=== PATIENT | female | born 1965 | race Caucasian/White ===

== ENCOUNTER 2017-07-02 05:02 | Emergency (ER) | payer OTHER ==
[2017-07-02 05:30] VITALS: BP 145/75; PULSE 88; TEMP 99.4; BMI 29.2
--- NOTE | 2017-07-02 05:46 | PDOC ---
History of Present Illness - General Chief Complaint: Cold Symptoms Stated Complaint: BURNING COUGH,SORE THROAT,PAIN Time Seen by Provider: 07/02/17 05:23 - History of Present Illness Initial Comments: 51 year old female with no significant PMH presenting with sore throat times 3 days and cough times 3 hours with chest pain. Patient states that she came in today because she was coughing which woke up her out of her sleep. The cough is productive of clear sputum and occasional specs of blood. She has had a sore throat for the past few days as well that has gradually improved with throat lozenges. She describes the chest pain as a burning sensation from her epigastrium to her upper chest that is worse during coughing and subsides after she stops coughing. The pain does not radiate to either shoulder or co-present with diaphoresis, nausea, SOB, or other symptoms. She denies fevers, chills, nausea, vomiting, diarrhea, olr other symptoms. 07/02/17 06:02 Past History - Past Medical History Allergies/Adverse Reactions: Allergies Allergy/AdvReac Type Severity Reaction Status Date / Time No Known Drug Allergies Allergy Verified 07/02/17 05:24 cefazolin AdvReac Intermediate Verified 07/02/17 05:24 Home Medications: Ambulatory Orders NK [No Known Home Medication] 07/02/17 Anemia: No Asthma: No (SEASONAL ALLERGIES) Cancer: No Cardiac Disorders: No CVA: No COPD: No CHF: No Dementia: No Diabetes: No GI Disorders: No Disorders: No HTN: No Hypercholesterolemia: No Liver Disease: No Seizures: No Thyroid Disease: No - Surgical History Abdominal Surgery: No Appendectomy: No Cardiac Surgery: No Cholecystectomy: No Lung Surgery: No Neurologic Surgery: No Orthopedic Surgery: No - Psycho/Social/Smoking Cessation Hx Anxiety: No Suicidal Ideation: No Smoking History: Never smoked Have you smoked in the past 12 months: No Information on smoking cessation initiated: No Hx Alcohol Use: No Drug/Substance Use Hx: No Substance Use Type: None Hx Substance Use Treatment: No Review of Systems - Review of Systems Constitutional: No: Chills, Diaphoresis, Fever HEENTM: No: Eye Pain, Blurred Vision, Recent change in vision Respiratory: Yes: Cough. No: Shortness of Breath Cardiac (ROS): Yes: Chest Pain. No: Lightheadedness, Syncope ABD/GI: No: Constipated, Diarrhea, Nausea, Vomiting : No: Burning, Dysuria Musculoskeletal: No: Back Pain Integumentary: No: Bruising, Erythema, Lesions Neurological: No: Headache, Numbness *Physical Exam - Vital Signs Last Vital Signs Temp Pulse Resp BP Pulse Ox 99.4 F 88 20 145/75 97 07/02/17 05:24 07/02/17 05:24 07/02/17 05:24 07/02/17 05:24 07/02/17 05:24 - Physical Exam General Appearance: Yes: Nourished, Appropriately Dressed. No: Apparent Distress HEENT: positive: EOMI, CHARLIE, Normal Voice. negative: Normal ENT Inspection, Pharynx Normal (Erythematous posterior oropharynx) Neck: positive: Trachea midline, Normal Thyroid, Supple. negative: Tender, Rigid Respiratory/Chest: positive: Chest Tender (tender to palpation over lower sternum), Lungs Clear, Normal Breath Sounds. negative: Respiratory Distress, Accessory Muscle Use Cardiovascular: positive: Regular Rhythm, Regular Rate, Murmur (faint systolic murmur) Gastrointestinal/Abdominal: positive: Normal Bowel Sounds, Flat, Soft. negative : Tender Musculoskeletal: positive: Normal Inspection Extremity: positive: Normal Range of Motion Integumentary: positive: Normal Color, Dry, Warm Neurologic: positive: Fully Oriented, Alert, Normal Mood/Affect Medical Decision Making - Medical Decision Making 51 year old female presenting with cough and sore throat for the past few hours that has resolved with Motrin 600 mg and Cepacol. Rapid strep pending and patient was signed out to Dr. Salazar at 07:00 in stable condition. 07/02/17 07:05 *DC/Admit/Observation/Transfer Diagnosis at time of Disposition: Cough - Referrals Referrals: Bertha Kincaid MD [Primary Care Provider] - - Patient Instructions Printed Discharge Instructions: How to Avoid a Cold or Flu Additional Instructions: You were seen for cough and sore throat. This is most likely a viral illness that should get better on its own. Please take Motrin at home and use throat lozenges. You should improve in a few days to a week. Please return if you don' t start to improve in the next few days or you get high fevers, nausea, vomiting , or other concerning symptoms that aren't relived with rest and medication. - Attestations Physician Attestion: I, Dr. Daniela Gerardo, attest that this document has been prepared under my direction and personally reviewed by me in its entirety. I further attest, that it accurately reflects all work, treatment, procedures and medical decision -making performed by me. 07/02/17 07:24
[2017-07-02] MEDS ORDERED: IBUPROFEN 400 MG TABLET (FP) PO ONE (05:59)
[2017-07-02] MEDS ORDERED: BENZOCAINE/MENTH/CETYLPYRD CL 1 EACH LOZENGE MM PRN (06:00)
[2017-07-02] MEDS ORDERED: IBUPROFEN 600 MG TABLET (FP) PO ONE ×2 (06:00→06:06)
--- NOTE | 2017-07-02 07:03 | PDOC ---
Attending Attestation - Resident Resident Name: HumairaDaniela - HPI HPI: 07/02/17 07:02 Pt comes with viral symptoms/cough/cold/sore throat. Afebrile. - Physicial Exam PE: 07/02/17 07:03 Agree with resident's note - Medical Decision Making 07/02/17 07:03 Rapid strep test done. If negative treat symptomatically for viral illness
--- NOTE | 2017-07-02 08:20 | PDOC ---
*Physical Exam - Vital Signs Last Vital Signs Temp Pulse Resp BP Pulse Ox 99.4 F 88 20 145/75 97 07/02/17 05:24 07/02/17 05:24 07/02/17 05:24 07/02/17 05:24 07/02/17 05:24 ED Treatment Course - Medications Given in the ED: ED Medications Discontinued Medications Generic Name Dose Route Start Last Admin Trade Name Elicia PRN Reason Stop Dose Admin Ibuprofen 400 mg 07/02/17 05:59 07/02/17 06:15 Motrin - PO 07/02/17 06:00 Not Given ONCE ONE Ibuprofen 600 mg 07/02/17 06:00 07/02/17 06:15 Motrin - PO 07/02/17 06:01 600 mg ONCE ONE Administration Medical Decision Making - Medical Decision Making 07/02/17 09:00 51 year old female presenting with cough and sore throat for the past few hours. Rapid Strep negative. Patient discharged 07/02/17 09:02 *DC/Admit/Observation/Transfer Diagnosis at time of Disposition: Cough - Referrals Referrals: Bertha Kincaid MD [Primary Care Provider] - - Patient Instructions Printed Discharge Instructions: How to Avoid a Cold or Flu Additional Instructions: You were seen for cough and sore throat. This is most likely a viral illness that should get better on its own. Please take Motrin at home and use throat lozenges. You should improve in a few days to a week. Please return if you don' t start to improve in the next few days or you get high fevers, nausea, vomiting , or other concerning symptoms that aren't relived with rest and medication. - Post Discharge Activity
== END 2017-07-02 09:23 | disposition home or self-care (01) ==
LOC: JER 05:02
DX: R05 Cough (principal)
CPT/HCPCS: 87070; 87077; 87430; 99282-25

== ENCOUNTER 2017-08-29 04:11 | Emergency (ER) | payer SELFPAY ==
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
[2017-08-29] MEDS ORDERED: ACETAMINOPHEN 500 MG TABLET (FP) PO ONE (05:01)
[2017-08-29] MEDS ORDERED: ACETAMINOPHEN 325 MG TABLET (FP) ONE (05:09)
[2017-08-29 05:14] VITALS: BP 126/79; PULSE 86; TEMP 98.2; BMI 26.5
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
== END 2017-08-29 06:30 | disposition home or self-care (01) ==
LOC: JER 04:11
DX: S90.122A Contusion of left lesser toe(s) without damage to nail, initial encounter (principal); W20.8XXA Other cause of strike by thrown, projected or falling object, initial encounter; Y93.89 Activity, other specified; Y92.038 Other place in apartment as the place of occurrence of the external cause; Z63.79 Other stressful life events affecting family and household
CPT/HCPCS: 99282-25

== ENCOUNTER 2018-01-08 10:10 | Emergency (ER) | payer OTHER ==
[2018-01-08 10:19] VITALS: BP 107/80; PULSE 76; TEMP 98.1; BMI 25.7
[2018-01-08] MEDS ORDERED: DEXAMETHASONE SOD PHOSPHATE 10 MG/1 ML VIAL IM ONE (10:57)
[2018-01-08] MEDS ORDERED: DEXAMETHASONE SOD PHOSPHATE 10 MG/1 ML VIAL ONE (10:59)
--- NOTE | 2018-01-08 11:01 | PDOC ---
History of Present Illness - General Chief Complaint: Allergic Reaction Stated Complaint: ALLERGIC RXN Time Seen by Provider: 01/08/18 10:49 History Source: Patient Exam Limitations: No Limitations - History of Present Illness Initial Comments: 01/08/18 10:57 52 yr female with c/o allergic reaction to food rosa isela night ate fish and other foods. pt has no history of food allergy in the past. Past History - Past Medical History Allergies/Adverse Reactions: Allergies Allergy/AdvReac Type Severity Reaction Status Date / Time cefazolin AdvReac Intermediate Verified 01/08/18 10:19 Home Medications: Ambulatory Orders Fluticasone Prop 0.05% Nasal [Flonase -] 1 - 2 spray NS DAILY #1 spray.pump Anemia: No Asthma: No (SEASONAL ALLERGIES) Cancer: No Cardiac Disorders: No CVA: No COPD: No CHF: No Dementia: No Diabetes: No GI Disorders: No Disorders: No HTN: No Hypercholesterolemia: No Liver Disease: No Seizures: No Thyroid Disease: No - Surgical History Abdominal Surgery: No Appendectomy: No Cardiac Surgery: No Cholecystectomy: No Lung Surgery: No Neurologic Surgery: No Orthopedic Surgery: No - Immunization History Immunization Up to Date: Yes - Suicide/Smoking/Psychosocial Hx Smoking History: Never smoked Have you smoked in the past 12 months: No Hx Alcohol Use: No Drug/Substance Use Hx: No Substance Use Type: None Hx Substance Use Treatment: No *Physical Exam - Vital Signs Last Vital Signs Temp Pulse Resp BP Pulse Ox 98.1 F 76 18 107/80 99 01/08/18 10:16 01/08/18 10:16 01/08/18 10:16 01/08/18 10:16 01/08/18 10:16 - Physical Exam General Appearance: Yes: Nourished, Appropriately Dressed HEENT: positive: EOMI, CHARLIE, Pharynx Normal, Nasal Congestion, Other (neg uvula swelling ) Neck: positive: Supple. negative: Tender Respiratory/Chest: positive: Lungs Clear, Normal Breath Sounds. negative: Chest Tender, Crackles, Rales, Rhonchi, Stridor, Wheezing Cardiovascular: positive: Regular Rhythm, Regular Rate Gastrointestinal/Abdominal: positive: Normal Bowel Sounds, Soft. negative: Tender Musculoskeletal: positive: Normal Inspection Extremity: positive: Normal Capillary Refill, Normal Inspection, Normal Range of Motion Integumentary: positive: Normal Color, Dry, Warm, Hives (left forearm, mild erythema to cheeks, forehead and upper eyelids ), Rash Neurologic: positive: Fully Oriented, Alert, Normal Mood/Affect, Normal Response , Motor Strength 5/5 Medical Decision Making - Medical Decision Making 01/08/18 10:59 cc: rash swelling to face, left arm relieved with benadryl somewhat. pt has one hive to left inner arm neg nvd neg fever or coughing no resp distress will give decadron now follow up with ENT as needed pt is stable for discharge. 01/08/18 11:03 *DC/Admit/Observation/Transfer Diagnosis at time of Disposition: Allergic reaction Qualifiers: Encounter type: initial encounter Qualified Code(s): T78.40XA - Allergy, unspecified, initial encounter - Discharge Dispostion Disposition: HOME Condition at time of disposition: Good - Prescriptions Prescriptions: Fluticasone Prop 0.05% Nasal [Flonase -] 1 - 2 spray NS DAILY #1 spray.pump - Referrals Referrals: Bertha Kincaid MD [Primary Care Provider] - Anthony Gurrola MD [Staff Physician] - - Patient Instructions Additional Instructions: cool water to bathe and cool compresses to face take benadryl as needed 50mg every 6-8hrs, if benadryl makes you tired during the day take a non drowsy antihistamine such as Claritin or Zytrec or Norma daily for 7 days use Flonase spray as directed for at least 7 days follow with the lan support specialist if symptoms worsen or persist - Post Discharge Activity
== END 2018-01-08 11:11 | disposition home or self-care (01) ==
LOC: JERFT 10:10
PROC: 3E0233Z Introduction of Anti-inflammatory into Muscle, Percutaneous Approach (ICD-10-PCS; principal; 2018-01-08)
DX: T78.40XA Allergy, unspecified, initial encounter (principal); L50.0 Allergic urticaria
CPT/HCPCS: 96372; 99281-25; J1100

== ENCOUNTER 2018-02-01 13:03 | Emergency (ER) | payer OTHER ==
--- NOTE | 2018-02-01 13:11 | PDOC ---
Rapid Medical Evaluation Chief Complaint: Eye Problem Time Seen by Provider: 02/01/18 13:10 Medical Evaluation: Allergies Allergy/AdvReac Type Severity Reaction Status Date / Time cefazolin AdvReac Intermediate Verified 02/01/18 13:10 02/01/18 13:10 The patient presents with a chief complaint of: repeat visit for scratched cornea I have performed a brief in-person evaluation of this patient. Pertinent physical exam findings: vss, I have ordered the following: n/a The patient will proceed to the ED for further evaluation. 02/01/18 13:12
[2018-02-01 13:14] VITALS: BP 102/58; PULSE 85; TEMP 98.6; BMI 28.3
[2018-02-01] MEDS ORDERED: TETRACAINE 0.5% OPHTH SOLN 2 ML BOTTLE ONE (13:31)
[2018-02-01] MEDS ORDERED: FLUORESCEIN NA 1 EA STRIP OD ONE (13:35)
[2018-02-01] MEDS ORDERED: TETRACAINE 0.5% HCL 0.6ML DROPPER.BOTTLE OD ONE (13:35)
--- NOTE | 2018-02-01 13:37 | PDOC ---
History of Present Illness - General Chief Complaint: Eye Problem Stated Complaint: EYE PROBLEM Time Seen by Provider: 02/01/18 13:10 History Source: Patient Exam Limitations: No Limitations - History of Present Illness Initial Comments: 02/01/18 13:38 CHIEF COMPLAINT: Left eye redness, drainage, pruritus and pain HISTORY OF PRESENT ILLNESS: Patient is a 52-year-old female, denies any significant medical history was seen in the emergency department on 01/27/2018 given bacitracin ophthalmic ointment, patient does wear contact lenses however has not worn them since this pain had begun. Does wear glasses. Patient reports that bacitracin has been applied as directed and symptoms are worsening. REVIEW OF SYSTEMS: GENERAL/CONSTITUTIONAL: No fever or chills. No weakness. No weight change. HEAD, EYES, EARS, NOSE AND THROAT: Left eye tearing, redness, pruritus, pain. Nasal congestion, chronic, no difficulty swallowing, no sore throat RESPIRATORY: No cough, wheezing, or hemoptysis. SKIN : No rash or easy bruising. NEUROLOGIC: No headache, vertigo, loss of consciousness, or loss of sensation. HEMATOLOGIC/LYMPHATIC: No lymphadenopathy ALLERGIC/IMMUNOLOGIC: No hives or skin allergy. No latex allergy. PHYSICAL EXAM: GENERAL: The patient is awake, alert, and fully oriented, in no acute distress. HEAD: Normal with no signs of trauma. EYES: Pupils equal, round and reactive to light, extraocular movements intact, sclera anicteric, conjunctiva injected on the left, right normal extending to limbus after fluorescein staining, no corneal abrasion noted. ENT: Ears normal, nares patent, oropharynx clear without exudates. Moist mucous membranes. NECK: Normal range of motion, supple without lymphadenopathy, JVD, or masses. LUNGS: Breath sounds equal, clear to auscultation bilaterally. No wheezes, and no crackles. NEUROLOGICAL: Cranial nerves II through XII grossly intact. Normal speech, normal gait. SKIN: No erythema no facial edema. Warm, Dry, normal turgor, no rashes or lesions noted. 02/01/18 13:38 Past History - Past Medical History Allergies/Adverse Reactions: Allergies Allergy/AdvReac Type Severity Reaction Status Date / Time cefazolin AdvReac Intermediate Verified 02/01/18 13:10 Home Medications: Ambulatory Orders Moxifloxacin HCl [Vigamox 0.5% Eye Drops -] 1 drop OS TID #1 bottle 02/01/18 Anemia: No Asthma: No (SEASONAL ALLERGIES) Cancer: No Cardiac Disorders: No CVA: No COPD: No CHF: No Dementia: No Diabetes: No GI Disorders: No Disorders: No HTN: No Hypercholesterolemia: No Liver Disease: No Seizures: No Thyroid Disease: No Other medical history: SEASONAL ALLERGIES - Surgical History Abdominal Surgery: No Appendectomy: No Cardiac Surgery: No Cholecystectomy: No Lung Surgery: No Neurologic Surgery: No Orthopedic Surgery: No - Immunization History Immunization Up to Date: Yes - Suicide/Smoking/Psychosocial Hx Smoking History: Never smoked Have you smoked in the past 12 months: No Hx Alcohol Use: No Drug/Substance Use Hx: No Substance Use Type: None Hx Substance Use Treatment: No *Physical Exam - Vital Signs Last Vital Signs Temp Pulse Resp BP Pulse Ox 98.6 F 85 19 102/58 95 02/01/18 13:10 02/01/18 13:10 02/01/18 13:10 02/01/18 13:10 02/01/18 13:10 Medical Decision Making - Medical Decision Making 02/01/18 13:39 A/P: Patient with bacterial conjunctivitis, does wear contact lenses will treat with Vigamox follow-up with ophthalmology *DC/Admit/Observation/Transfer Diagnosis at time of Disposition: Bacterial conjunctivitis of left eye - Discharge Dispostion Disposition: HOME Condition at time of disposition: Stable Admit: No - Prescriptions Prescriptions: Moxifloxacin HCl [Vigamox 0.5% Eye Drops -] 1 drop OS TID #1 bottle - Referrals Referrals: Bertha Kincaid MD [Primary Care Provider] - - Patient Instructions Printed Discharge Instructions: How to Instill Eye Drops, DI for Conjunctivitis Additional Instructions: * Refrain from touching or scratching eye * Please wash hands frequently * Please followup with his primary care doctor in 2 days if symptoms persist * Medication as prescribed * Warm compresses to eye * If increased redness, swelling, pain to the eye please follow up with primary care doctor immediately or return to emergency room - Post Discharge Activity Forms/Work/School Notes: Back to Work
== END 2018-02-01 13:47 | disposition home or self-care (01) ==
LOC: JERFT 13:03
DX: H10.89 Other conjunctivitis (principal); J30.2 Other seasonal allergic rhinitis
CPT/HCPCS: 99281-25

== ENCOUNTER 2018-11-03 16:28 | Emergency (ER) | payer OTHER ==
[2018-11-03 16:44] VITALS: BP 96/58; PULSE 79; TEMP 97.9; BMI 26.7
--- NOTE | 2018-11-03 16:44 | PDOC ---
Rapid Medical Evaluation Chief Complaint: Sore Throat Time Seen by Provider: 11/03/18 16:42 Medical Evaluation: Allergies Allergy/AdvReac Type Severity Reaction Status Date / Time cefazolin AdvReac Intermediate Verified 11/03/18 16:42 11/03/18 16:42 The patient presents with a chief complaint of: sore throat since yesterday , worsening loss voice,no fever I have performed a brief in-person evaluation of this patient; vss Pertinent physical exam findings: ambulatory, in no respiratory distress, + exudate rt 3+ tonsil I have ordered the following: rapid strep The patient will proceed to the ED for further evaluation. Discharge Disposition - Diagnosis Throat discomfort - Referrals - Patient Instructions - Post Discharge Activity
--- NOTE | 2018-11-03 17:55 | PDOC ---
History of Present Illness - General Chief Complaint: Sore Throat Stated Complaint: SORE THROAT Time Seen by Provider: 11/03/18 16:42 History Source: Patient Exam Limitations: No Limitations - History of Present Illness Initial Comments: 11/03/18 18:59 Pt is a 53 y/o F who presents with 5 days of sore throat. States she has tried OTC's with little relief of her symptoms. Denies fevers, chills, n/v/d, rash and cough. Past History - Travel Traveled outside of the country in the last 30 days: No Close contact w/someone who was outside of country & ill: No - Past Medical History Allergies/Adverse Reactions: Allergies Allergy/AdvReac Type Severity Reaction Status Date / Time cefazolin AdvReac Intermediate Verified 11/03/18 16:42 Home Medications: Ambulatory Orders Amoxicillin - [Amoxicillin 500mg Capsule -] 500 mg PO BID #14 capsule 11/03/18 Pseudoephedrine HCl 30 mg PO TID #21 tablet 11/03/18 Anemia: No Asthma: No (SEASONAL ALLERGIES) Cancer: No Cardiac Disorders: No CVA: No COPD: No CHF: No Dementia: No Diabetes: No GI Disorders: No Disorders: No HTN: No Hypercholesterolemia: No Liver Disease: No Seizures: No Thyroid Disease: No - Surgical History Abdominal Surgery: No Appendectomy: No Cardiac Surgery: No Cholecystectomy: No Lung Surgery: No Neurologic Surgery: No Orthopedic Surgery: No - Immunization History Immunization Up to Date: Yes - Suicide/Smoking/Psychosocial Hx Smoking History: Never smoked Have you smoked in the past 12 months: No Information on smoking cessation initiated: No Hx Alcohol Use: No Drug/Substance Use Hx: No Substance Use Type: None Hx Substance Use Treatment: No Review of Systems - Review of Systems Able to Perform ROS?: Yes Comments:: 11/03/18 19:02 CONSTITUTIONAL: Absent: fever, chills, diaphoresis, generalized weakness, malaise, loss of appetite HEENT: Present: congestion, rhinorrhea, sore throat Absent: throat swelling, difficulty swallowing, mouth swelling, ear pain, eye pain, visual Changes CARDIOVASCULAR: Absent: chest pain, loss of consciousness, palpitations, irregular heart rate, peripheral edema RESPIRATORY: Absent: cough, shortness of breath, dyspnea with exertion, orthopnea, wheezing, stridor, hemoptysis GASTROINTESTINAL: Absent: abdominal pain, abdominal distension, nausea, vomiting, diarrhea, constipation, melena, hematochezia GENITOURINARY: Absent: dysuria, frequency, urgency, hesitancy, hematuria, flank pain, genital pain MUSCULOSKELETAL: Absent: myalgia, arthralgia, joint swelling SKIN: Absent: rash, itching, pallor HEMATOLOGIC/IMMUNOLOGIC: Absent: easy bleeding, easy bruising, lymphadenopathy, frequent infections ENDOCRINE: Absent: unexplained weight gain, unexplained weight loss, heat intolerance, cold intolerance NEUROLOGIC: Absent: headache, focal weakness or paresthesias, dizziness, unsteady gait, seizure, mental status changes, bladder or bowel incontinence PSYCHIATRIC: Absent: anxiety, depression, suicidal or homicidal ideation, hallucinations. Is the patient limited Ecuadorean proficient: No *Physical Exam - Vital Signs Last Vital Signs Temp Pulse Resp BP Pulse Ox 97.9 F 79 16 96/58 L 100 11/03/18 16:42 11/03/18 16:42 11/03/18 16:42 11/03/18 16:42 11/03/18 16:42 - Physical Exam Comments: 11/03/18 09:03 GENERAL: The patient is awake, alert, and fully oriented, in no acute distress. HEAD: Normal with no signs of trauma. EYES: Pupils equal, round and reactive to light, extraocular movements intact, sclera anicteric, conjunctiva clear. MOUTH: Tonsils 1+ in size and erythematous. Uvula is midline. No exudates noted. EXTREMITIES: Normal range of motion, no edema. NEUROLOGICAL: Normal speech, normal gait. PSYCH: Normal mood, normal affect. SKIN: Warm, Dry, normal turgor, no rashes or lesions noted Moderate Sedation - Procedure Monitoring Vital Signs: Procedure Monitoring Vital Signs Temperature 97.9 F 11/03/18 16:42 Pulse Rate 79 11/03/18 16:42 Respiratory Rate 16 11/03/18 16:42 Blood Pressure 96/58 L 11/03/18 16:42 O2 Sat by Pulse Oximetry (%) 100 11/03/18 16:42 Medical Decision Making - Medical Decision Making 11/03/18 19:04 Pt is a 53 y/o F presenting with 5 days of sore throat -rapid strep obtained from [facility] (+) for strep. Uvula midline -will treat with amoxicillin at this time -VSS, afebrile -DC home -I discussed the physical exam findings, ancillary test results and final diagnoses with the patient. I answered all of the patient's questions. The patient was satisfied with the care received and felt comfortable with the discharge plan and treatment plan. The Patient agrees to follow up with the primary care physician/specialist within 24-72 hours. Return precautions were given. *DC/Admit/Observation/Transfer Diagnosis at time of Disposition: Strep throat - Discharge Dispostion Disposition: HOME Condition at time of disposition: Stable Decision to Admit order: No - Prescriptions Prescriptions: Amoxicillin - [Amoxicillin 500mg Capsule -] 500 mg PO BID #14 capsule Pseudoephedrine HCl 30 mg PO TID #21 tablet - Referrals Referrals: Bertha Kincaid MD [Primary Care Provider] - - Patient Instructions Printed Discharge Instructions: DI for Strep Throat Additional Instructions: You have strep throat. This is a bacterial infection. Please take the amoxicillin 500 mg twice a day for one week. Please finish the prescription even if you feel better. You may take Motrin 600 mg every 8 hours as needed for pain or fever. You may take Psuedaphed every 8 hours as needed for congestion Warm water gargles and cough drops and just may also help her symptoms. Please throw way your toothbrush 3 days into treatment to prevent reinfection. Please follow up with your primary care doctor next week. Return to emergency department if you have worsening pain, difficulty swallowing , changes in your voice, lightheadedness, dizziness, or any changes in your symptoms. - Post Discharge Activity
== END 2018-11-03 17:55 | disposition home or self-care (01) ==
LOC: JERFT 16:28
DX: J02.0 Streptococcal pharyngitis (principal); B95.0 Streptococcus, group A, as the cause of diseases classified elsewhere
CPT/HCPCS: 87880; 99281-25

== ENCOUNTER 2018-11-22 14:02 | Emergency (ER) | payer OTHER ==
--- NOTE | 2018-11-22 14:08 | PDOC ---
Rapid Medical Evaluation Time Seen by Provider: 11/22/18 14:06 Medical Evaluation: Allergies Allergy/AdvReac Type Severity Reaction Status Date / Time cefazolin AdvReac Intermediate Verified 11/03/18 16:42 11/22/18 14:06 I have performed a brief in-person evaluation of this patient. The patient presents with a chief complaint of: URi symptoms x3 weeks Pertinent physical exam findings: OP-WNL, Lungs CTAB I have ordered the following: nothing The patient will proceed to the ED for further evaluation. Discharge Disposition - Diagnosis URI (upper respiratory infection) - Referrals - Patient Instructions - Post Discharge Activity
[2018-11-22 14:10] VITALS: BP 104/58; PULSE 86; TEMP 97.9; BMI 26.7
--- NOTE | 2018-11-22 15:02 | PDOC ---
History of Present Illness - General Chief Complaint: Ear Problem Stated Complaint: PAIN IN THE R EAR,DIFFICULTY BREATHING Time Seen by Provider: 11/22/18 14:06 - History of Present Illness Initial Comments: 11/22/18 15:00 53-year-old female presents for nasal congestion and ear congestion 2 weeks without systemic symptoms Past History - Past Medical History Allergies/Adverse Reactions: Allergies Allergy/AdvReac Type Severity Reaction Status Date / Time cefazolin AdvReac Intermediate Verified 11/22/18 14:10 Home Medications: Ambulatory Orders Azithromycin [Zithromax -] 250 mg PO UTDICT #6 tab 11/22/18 Budesonide [Rhinocort Allergy] 1 spray NS ONCE #1 spray.pump 11/22/18 Anemia: No Asthma: No (SEASONAL ALLERGIES) Cancer: No Cardiac Disorders: No CVA: No COPD: No CHF: No Dementia: No Diabetes: No GI Disorders: No Disorders: No HTN: No Hypercholesterolemia: No Liver Disease: No Seizures: No Thyroid Disease: No - Surgical History Abdominal Surgery: No Appendectomy: No Cardiac Surgery: No Cholecystectomy: No Lung Surgery: No Neurologic Surgery: No Orthopedic Surgery: No - Immunization History Immunization Up to Date: Yes - Suicide/Smoking/Psychosocial Hx Smoking History: Never smoked Have you smoked in the past 12 months: No Information on smoking cessation initiated: No Hx Alcohol Use: No Drug/Substance Use Hx: No Substance Use Type: None Hx Substance Use Treatment: No Review of Systems - Review of Systems Constitutional: No: Fever HEENTM: Yes: Nose Congestion *Physical Exam - Vital Signs Last Vital Signs Temp Pulse Resp BP Pulse Ox 97.9 F 86 16 104/58 L 100 11/22/18 14:08 11/22/18 14:08 11/22/18 14:08 11/22/18 14:08 11/22/18 14:08 - Physical Exam Comments: 11/22/18 15:00 HEAD: NC/AT EYES: Conjuntiva clear Ears: Canals and TM's normal NOSE: Clear discharge turbinates injected THROAT: Moist mucous membrances, oral pharanx clear, uvula midline NECK: Supple without adenopathy CARDIAC: S1 S2 LUNGS: CTA Full and Equal breath sounds ABDOMEN: Soft NT ND MS: Full ROM in all joints without edema NEUROLOGIC: No gross sensory or motor deficits, NVID SKIN: Normal color and temperature no lesions or rashes Moderate Sedation - Procedure Monitoring Vital Signs: Procedure Monitoring Vital Signs Temperature 97.9 F 11/22/18 14:08 Pulse Rate 86 11/22/18 14:08 Respiratory Rate 16 11/22/18 14:08 Blood Pressure 104/58 L 11/22/18 14:08 O2 Sat by Pulse Oximetry (%) 100 11/22/18 14:08 *DC/Admit/Observation/Transfer Diagnosis at time of Disposition: URI (upper respiratory infection), Sinusitis - Discharge Dispostion Disposition: HOME Condition at time of disposition: Stable Decision to Admit order: No - Prescriptions Prescriptions: Azithromycin [Zithromax -] 250 mg PO UTDICT #6 tab Budesonide [Rhinocort Allergy] 1 spray NS ONCE #1 spray.pump - Referrals Referrals: Anthony Gurrola MD [Staff Physician] - - Patient Instructions Printed Discharge Instructions: Sinusitis, DI for Sinusitis Additional Instructions: Please take the antibiotics as directed as well as the nasal spray. Return to the emergency room should symptoms worsen or go unresolved and follow-up with ear nose and throat doctor in 1-2 days for further evaluation and treatment options. - Post Discharge Activity
== END 2018-11-22 15:15 | disposition home or self-care (01) ==
LOC: JERFT 14:02
DX: J01.90 Acute sinusitis, unspecified (principal); J06.9 Acute upper respiratory infection, unspecified
CPT/HCPCS: 99281-25

== ENCOUNTER 2019-11-08 13:09 | Emergency (ER) | payer SELFPAY ==
[2019-11-08 13:15] VITALS: BP 90/56; PULSE 90; TEMP 98.7; BMI 27.3
--- NOTE | 2019-11-08 13:58 | PDOC ---
History of Present Illness - General Chief Complaint: Cold Symptoms Stated Complaint: FLU LIKE SYMPTOMS Time Seen by Provider: 11/08/19 13:22 History Source: Patient - History of Present Illness Initial Comments: 11/08/19 14:04 54-year-old female complaining of nasal congestion, throat pain, cough for the last 4 days. Patient reports that she was exposed to people with flu and strep throat. Denies chest pain nausea, vomiting, diarrhea, abdominal pain. No past medical history Past History - Past Medical History Allergies/Adverse Reactions: Allergies Allergy/AdvReac Type Severity Reaction Status Date / Time cefazolin AdvReac Intermediate Verified 11/08/19 13:15 Home Medications: Ambulatory Orders Azithromycin [Zithromax -] 250 mg PO UTDICT #6 tab 11/22/18 Fluticasone Prop 0.05% Nasal [Flonase -] 1 - 2 spray NS BID #1 spray.pump Anemia: No Asthma: No (SEASONAL ALLERGIES) Cancer: No Cardiac Disorders: No CVA: No COPD: No CHF: No Dementia: No Diabetes: No GI Disorders: No Disorders: No HTN: No Hypercholesterolemia: No Liver Disease: No Seizures: No Thyroid Disease: No - Surgical History Abdominal Surgery: No Appendectomy: No Cardiac Surgery: No Cholecystectomy: No Lung Surgery: No Neurologic Surgery: No Orthopedic Surgery: No - Immunization History Immunization Up to Date: Yes - Psycho Social/Smoking Cessation Hx Smoking History: Never smoked Have you smoked in the past 12 months: No Hx Alcohol Use: No Drug/Substance Use Hx: No Substance Use Type: None Hx Substance Use Treatment: No Review of Systems - Review of Systems Able to Perform ROS?: Yes Is the patient limited Zimbabwean proficient: No Constitutional: No: Symptoms Reported, See HPI, Chills, Diaphoresis, Fever, Loss of Appetite, Malaise, Night Sweats, Weakness, Weight Stable, Unintentional Wgt. Loss, Unexplained wgt Loss, Other HEENTM: Yes: Nose Congestion, Throat Pain. No: Symptoms Reported, See HPI, Eye Pain, Blurred Vision, Tearing, Recent change in vision, Double Vision, Cataracts , Ear Pain, Ocular Prothesis, Ear Discharge, Nose Pain, Tinnitus, Nose Bleeding , Hearing Loss, Throat Swelling, Mouth Pain, Dental Problems, Difficulty Swallowing, Mouth Swelling, Other Respiratory: Yes: Cough ABD/GI: No: Symptoms Reported, See HPI, Abdominal Distended, Abd. Pain w/ defecation, Blood Streaked Bowels, Constipated, Diarrhea, Difficulty Swallowing , Nausea, Poor Appetite, Poor Fluid Intake, Rectal Bleeding, Vomiting, Indigestion, Abdominal cramping, Tarry Stools, Other *Physical Exam - Vital Signs Last Vital Signs Temp Pulse Resp BP Pulse Ox 98.7 F 90 18 90/56 L 98 11/08/19 13:12 11/08/19 13:12 11/08/19 13:12 11/08/19 13:12 11/08/19 13:12 - Physical Exam General Appearance: Yes: Appropriately Dressed Respiratory/Chest: positive: Lungs Clear, Normal Breath Sounds Gastrointestinal/Abdominal: positive: Normal Bowel Sounds, Soft. negative: Tender Extremity: positive: Normal Capillary Refill, Normal Inspection, Normal Range of Motion Integumentary: positive: Normal Color, Dry, Warm Neurologic: positive: Fully Oriented, Alert, Normal Mood/Affect ED Progress Note - Progress Note Progress Note: 11/08/19 14:06 A: flu like symptoms P: strep negative flu supportive care discussed Discharge - Discharge Information Problems reviewed: Yes Clinical Impression/Diagnosis: Flu-like symptoms Pharyngitis Qualifiers: Pharyngitis/tonsillitis etiology: unspecified etiology Qualified Code(s): J02.9 - Acute pharyngitis, unspecified Disposition: HOME - Follow up/Referral Referrals: Bertha Kincaid MD [Primary Care Provider] - - Patient Discharge Instructions Patient Printed Discharge Instructions: DI for Common Cold Additional Instructions: Drink plenty of fluids Gargle with warm salty water Drink warm liquids Take ibuprofen every 6 hours as needed for pain or fever Follow with your doctor as soon possible - Post Discharge Activity
[2019-11-08] MEDS ORDERED: IBUPROFEN 600 MG TABLET (FP) PO ONE ×2 (13:59→15:18)
== END 2019-11-08 15:35 | disposition home or self-care (01) ==
LOC: JERFT 13:09
DX: J11.1 Influenza due to unidentified influenza virus with other respiratory manifestations (principal)
CPT/HCPCS: 87070; 87880; 99281-25

== ENCOUNTER 2020-06-14 17:00 | Inpatient (IN) | payer OTHER ==
--- NOTE | 2020-06-14 17:16 | PDOC ---
Rapid Medical Evaluation Chief Complaint: Pain Time Seen by Provider: 06/14/20 17:13 Medical Evaluation: Allergies Allergy/AdvReac Type Severity Reaction Status Date / Time cefazolin AdvReac Intermediate Verified 06/14/20 17:13 06/14/20 17:14 I performed a brief in-person evaluation of this patient. Pt is a 54 y/o female with bodyaches, chills, fever since yesterday. She denies any recent travel. She has a h/o hypokalemia but is not on any medications. Pertinent physical exam findings: clear lungs, general unwell appearing but nontoxic I have ordered the following: saline lock, covid test, cbc, cmp, cxr Patient to proceed to ED for further evaluation. Discharge Disposition - Diagnosis Weakness - Referrals - Patient Instructions - Post Discharge Activity
[2020-06-14] MEDS ORDERED: SODIUM CHLORIDE 0.9% 1000 ML INFUS.BAG IV ONE (17:52)
[2020-06-14] MEDS ORDERED: ONDANSETRON 4 MG/2 ML VIAL IVPUSH ONE (17:53)
[2020-06-14] MEDS ORDERED: ACETAMINOPHEN 1000 MG/100 ML VIAL (NON FORMULARY) IVPB ONE (17:53)
--- NOTE | 2020-06-14 17:53 | PDOC ---
History of Present Illness - General Chief Complaint: Pain Stated Complaint: CHILLS/FEVER/RUNNY /NOSE/HEADACHE Time Seen by Provider: 06/14/20 17:13 Past History - Medical History Allergies/Adverse Reactions: Allergies Allergy/AdvReac Type Severity Reaction Status Date / Time cefazolin AdvReac Intermediate Verified 06/14/20 17:13 Anemia: No Asthma: No (SEASONAL ALLERGIES) Cancer: No Cardiac Disorders: No CVA: No COPD: No CHF: No Dementia: No Diabetes: No GI Disorders: No Disorders: No HTN: No Hypercholesterolemia: No Liver Disease: No Seizures: No Thyroid Disease: No - Surgical History Abdominal Surgery: No Appendectomy: No Cardiac Surgery: No Cholecystectomy: No Lung Surgery: No Neurologic Surgery: No Orthopedic Surgery: No - Immunization History Immunization Up to Date: Yes - Psycho-Social/Smoking History Smoking History: Unknown if ever smoked Have you smoked in the past 12 months: No Information on smoking cessation initiated: No - Substance Abuse Hx (Audit-C & DAST Scrn) How often the patient has a drink containing alcohol: Never Score: In Men: 4 or > Positive; In Women: 3 or > Positive: 0 Screen Result (Pos requires Nsg. Audit-10AR): Negative In the last yr the pt used illegal drug/Rx for NonMed reason: No Score: Yes response is considered Positive: 0 Screen Result (Positive result requires Nsg. DAST-10): Negative *Physical Exam - Vital Signs Last Vital Signs Temp Pulse Resp BP Pulse Ox 99.7 F H 93 H 18 108/48 L 100 06/14/20 17:13 06/14/20 17:13 06/14/20 17:13 06/14/20 17:13 06/14/20 17:13 ED Treatment Course - LABORATORY CBC & Chemistry Diagram: 06/14/20 17:30 06/14/20 17:30 Medical Decision Making - Medical Decision Making 06/14/20 17:50 HPI: 54yo F hx hypokalemia (3yrs ago, not on meds) presents form home for 1 day chills, myalgias, rhinorrhea, nausea, malaise, poor PO intake, and NB soft diarrhea x3. Ate breakfast wrap at 1000 today. No meds tried. Endorses mild headache. [place] [facility] [place] last PM. Denies sick contacts, travel, recent abx, off or foods, insect bites, rash, fever, dizziness, numbness/tingling, focal weakness, vision changes, chest pain, SOB, cough, sore throat, ear pain, sinus congestion, abdominal pain, dysuria, hematuria, constipation, vomiting. ROS: Constitutional: Positive for chills, fatigue. Negative for fever, diaphoresis. HENT: Positive for rhinorrhea. Negative for sore throat, congestion. Eyes: Negative for visual disturbance. Respiratory: Negative for shortness of breath, cough, and wheezing. Cardiovascular: Negative for chest pain, palpitations, and leg swelling. Gastrointestinal: Positive for diarrhea, nausea. Negative for abdominal pain, blood in stool, constipation, and vomiting. Genitourinary: Negative for dysuria, flank pain, and hematuria. Musculoskeletal: Positive for myalgias. Negative for back pain, and neck pain. Skin: Negative for rash. Neurological: Positive for headache. Negative for light-headedness, dizziness, vertigo, syncope, weakness, numbness. Psychiatric/Behavioral: Negative for behavioral problems and confusion. PE: Gen: Alert, NAD, tired-appearing. HEENT: PERRL, EOMI, dry MM, NCAT. No conjunctival pallor. Sclera are non- icteric. CV: Regular rate and rhythm. No murmurs, rubs, or gallops. PULM: No resp distress. CTAB, no wheezes, rales, or rhonchi. ABD: soft, NT/ND, no rebound tenderness or guarding, no CVA tenderness. BACK: No TTP of c/t/l-spine. No step-offs or deformities. MSK: No bony deformities. 2+ pulses in all extremities. NEURO: AAOx3. PERRL. CN 2-12 intact. 5/5 strength in all extremities. Sensation to light touch intact in all extremities. No abnormal nystagmus. Normal gait. EXTREMITIES: No cyanosis. No clubbing. No edema. No calf tenderness. PSYCH: Normal mood and thought pattern. SKIN: Warm and dry. Normal capillary refill. No rashes. No jaundice. MDM: 54yo F hx hypokalemia (3yrs ago, not on meds) presents form home for 1 day chills, myalgias, rhinorrhea, nausea, malaise, poor PO intake, and NB soft diarrhea x3. Soft blood pressure 108/48, 99.7F, hemodynamically stable, neurologically intact, benign abdomen. Ddx: Presentation c/w viral syndrome, most likely gastroenteritis vs URI. Also consider COVID. Due to benign abdomen exam and lack of abdominal pain, very low concern for emergent GI pathology such as pancreatitis, colitis, diverticulitis, or appendicitis - obtain basic labs and reassess. No rash or neurologic deficit or exposure concerning for meningitis or lyme or zoonotic infections. No chest pain or fever or IVDU concerning for endocarditis. Also consider metabolic derangement or anemia. -EKG -CXR -CBC,CMP,COVID,Inflammatory markers -IVF -Zofran -Ofirmev -Pain management -Dispo: pending workup and reassessment, likely d/c home 06/14/20 18:47 CXR reviewed: No acute pathology 06/14/20 19:49 Labs reviewed. No concerning findings. Pt ambulating normally without difficulty, O2 remains >97% with ambulation. Pt tolerating PO liquids and soft foods. BP improved but remains 111/63 despite being on 3rd L IVF. Pt states she's feeling better but still has headache and has had multiple additional episodes of diarrhea in ED and would feel more comfortable here, lives alone. -Ibuprofen -Reglan 06/14/20 20:10 EKG reviewed: normal sinus rhythm, 66bpm, normal axis, normal intervals, no TWIs, no ST elevations or depressions Admit for pain management and hydration and monitoring 06/14/20 21:07 [address] out [address] [address]. Discharge - Discharge Information Problems reviewed: Yes Clinical Impression/Diagnosis: Weakness, Diarrhea, Fever Condition: Stable - Admission Yes - Follow up/Referral Referrals: Bertha Kincaid MD [Primary Care Provider] - - Patient Discharge Instructions Patient Printed Discharge Instructions: DI for Viral Gastroenteritis -- Adult, [facility]-Coronavirus Instructions, [facility] COVID-19 Isolation Protocol - Post Discharge Activity
[2020-06-14] MEDS ORDERED: ACETAMINOPHEN INJECTION 100 ML IVPB ONE (18:01)
[2020-06-14] MEDS ORDERED: LACTATED RINGERS SOLUTION 1000 ML INFUS.BAG IV ONE (18:02)
[2020-06-14 18:20] LABS: BASO % 0.7 % (0-2.0); EOS % 0.2 % (0-4.5); HEMATOCRIT 38.1 % (32.4-45.2); HEMOGLOBIN 12.7 GM/dL (10.7-15.3); LYMPH % 23.7 % (8-40); MCH 26.1 pg (25.7-33.7); MCHC 33.3 g/dl (32.0-36.0); MEAN CELL VOLUME 78.5 fl (80-96); MEAN PLT VOLUME 9.1 fl (7.5-11.1); MONO % 7.8 % (3.8-10.2); NEUT % 67.6 % (42.8-82.8); PLATELET COUNT 144 K/MM3 (134-434); RBC 4.85 M/mm3 (3.60-5.2); RDW 14.4 % (11.6-15.6); WHITE BLOOD COUNT 3.4 K/mm3 (4.0-10.0)
[2020-06-14 18:48] LABS: ALBUMIN 3.6 g/dl (3.4-5.0); BILIRUBIN,TOTAL 0.3 mg/dL (0.2-1); BLOOD UREA NITROGEN 8.8 mg/dL (7-18); CALCIUM 8.9 mg/dL (8.5-10.1); CREATININE 0.7 mg/dL (0.55-1.3); POTASSIUM 3.9 mmol/L (3.5-5.1); TOT PROT 7.2 g/dl (6.4-8.2)
--- NOTE | 2020-06-14 18:54 | PDOC ---
Attending Attestation - Resident Resident Name: Maritza Terrell - ED Attending Attestation I have performed the following: I have examined & evaluated the patient, The case was reviewed & discussed with the resident, I agree w/resident's findings & plan, Exceptions are as noted - HPI HPI: 06/14/20 18:49 54 years old with no significant past medical history presents the emergency department with 1 day history of subjective fever chills weakness body aches myalgias diffuse abdominal discomfort and 3 episodes of diarrhea No travel no sick contacts symptoms are moderate persistent constant no exacerbating or alleviating factors. - Physicial Exam PE: 06/14/20 18:49 Vitals: Triage Vital signs reviewed General Appearance: Mildly uncomfortable Jevity back tomorrow head: Atraumatic, Eyes: Pupils equal reactive round, extraocular movement intact Cardiac: Regular rate and rhythym, no murmurs, no rubs, no gallops, Lungs: Clear to auscultation bilateral, good air movement bilaterally, Abdomen: Soft, non distended, normal bowel sounds, non tender to palpation Extremities: Full range of motion to all extremities, no cyanosis, clubbing, or edema Skin: Warm and dry, no rashes or lesions, no rash, no petechiae Psych: Normal mood, normal affect - Medical Decision Making 06/14/20 18:54 54 years old with fever chills body ache no known tick exposures Differential diagnosis includes viral GI illness versus COVID We will check labs hydrate Tylenol inflammatory markers ambulate with pulse ox Dr. Schuster to follow-up labs and reassess patient. Discharge - Discharge Information Problems reviewed: Yes Clinical Impression/Diagnosis: Weakness Diarrhea Qualifiers: Diarrhea type: unspecified type Qualified Code(s): R19.7 - Diarrhea, unspecified Fever Qualifiers: Fever type: unspecified Qualified Code(s): R50.9 - Fever, unspecified Condition: Stable - Follow up/Referral - Patient Discharge Instructions - Post Discharge Activity
[2020-06-14] MEDS ORDERED: IBUPROFEN 600 MG TABLET (FP) PO ONE ×2 (19:54→19:59)
[2020-06-14] MEDS ORDERED: METOCLOPRAMIDE HCL INJECTION 10 MG/2 ML VIAL IVPB ONE (19:54)
[2020-06-14] MEDS ORDERED: METOCLOPRAMIDE HCL INJECTION 10 MG/2 ML VIAL ONE (19:59)
[2020-06-14] MEDS ORDERED: SODIUM CHLORIDE 0.9% 500 ML INFUS.BAG IV ONE (20:23)
--- NOTE | 2020-06-14 20:25 | PDOC ---
*Physical Exam - Vital Signs Last Vital Signs Temp Pulse Resp BP Pulse Ox 100.4 F H 62 19 111/63 98 06/14/20 19:28 06/14/20 19:28 06/14/20 19:28 06/14/20 19:28 06/14/20 19:28 ED Treatment Course - LABORATORY CBC & Chemistry Diagram: 06/15/20 07:47 06/15/20 07:47 - ADDITIONAL ORDERS Additional order review: Laboratory Results 06/14/20 17:30 Sodium 137 Potassium 3.9 Chloride 106 Carbon Dioxide 25 Anion Gap 5 L BUN 8.8 Creatinine 0.7 Est GFR (CKD-EPI)AfAm 114.65 Est GFR (CKD-EPI)NonAf 98.92 Random Glucose 103 Calcium 8.9 Ferritin 112.7 Total Bilirubin 0.3 AST 25 ALT 25 Alkaline Phosphatase 110 C-Reactive Protein 2.3 H Total Protein 7.2 Albumin 3.6 HDL Cholesterol 47 06/14/20 17:30 RBC 4.85 MCV 78.5 L MCHC 33.3 RDW 14.4 MPV 9.1 Neutrophils % 67.6 Lymphocytes % 23.7 Monocytes % 7.8 Eosinophils % 0.2 D Basophils % 0.7 - Medications Given in the ED: ED Medications Discontinued Medications Generic Name Dose Route Start Last Admin Trade Name Freq PRN Reason Stop Dose Admin Acetaminophen 1,000 mg 06/14/20 17:53 06/14/20 18:18 Ofirmev Injection - IVPB 06/14/20 17:54 1,000 mg ONCE ONE Administration Ibuprofen 600 mg 06/14/20 19:54 06/14/20 20:20 Motrin - PO 06/14/20 19:55 600 mg ONCE ONE Administration Lactated Ringer's 1,000 ml 06/14/20 18:02 06/14/20 19:27 Lactated Ringers Solution IV 06/14/20 18:03 1,000 ml ONCE ONE Administration Metoclopramide HCl 10 mg 06/14/20 19:54 06/14/20 20:21 Reglan Injection - IVPB 06/14/20 19:55 10 mg ONCE ONE Administration Ondansetron HCl 4 mg 06/14/20 17:53 06/14/20 18:05 Zofran Injection IVPUSH 06/14/20 17:54 4 mg NOW ONE Administration Sodium Chloride 1,000 ml 06/14/20 17:52 06/14/20 18:00 Normal Saline - IV 06/14/20 17:53 1,000 ml ONCE ONE Administration Medical Decision Making - Medical Decision Making 06/14/20 20:24 Pt continues to feel unwell with headache. Not able to eat appreciable amount of food. Feels weak. Her P<MD is Dr. KINCAID; She will be admitted to Dr. Kincaid under the hospitalists. Pt will be treated with another L of NSS; BP remains low. Discharge - Discharge Information Problems reviewed: Yes Clinical Impression/Diagnosis: Weakness, Diarrhea, Fever Condition: Stable - Follow up/Referral - Patient Discharge Instructions - Post Discharge Activity
[2020-06-14] MEDS: SODIUM CHLORIDE 1,000 ML IV SCH (21:29)
--- NOTE | 2020-06-14 23:04 | HP ---
CHIEF COMPLAINT: Chills, Myalgias, Headache, Runny Nose, Diarrhea, Loss of Appetite, Fatigue PCP: Bertha Kincaid HISTORY OF PRESENT ILLNESS: This is a 54 y/o female with a PMHx of hypokalemia (3yrs ago, not on meds). Who presents to the ED with for 1 day of chills, myalgias, rhinorrhea, nausea, malaise, poor PO intake, and NB soft diarrhea x8 episodes (today). Patient reprots eating at [employer] with her son yesterday, and she had breakfast today- breakfast wrap. She reports feeling fatigued, low energy "not herself". She reports practicing social distancing and wearing a mask. She denies fever, cough, sinus congestion, sore throat, dizziness, CP, palpitations, AP, N/V, constipation melena, hematochezia, hematuria, dysuria. Patient denies sick contacts or recent travel ER course was notable for: (1) Chest Xray- no acute pathology (2) EKG-NSR [address] or TWI (3) Recent Travel: None PAST MEDICAL HISTORY: See HPI PAST SURGICAL HISTORY: Tubal Ligation Bladder Lift Social History: Smoking: Never Alcohol: Denies Drugs: Denies Lives alone, unemployed Allergies cefazolin Adverse Reaction (Intermediate, Verified 06/14/20 17:13) ERYTHEMA, URTICARIA. HOME MEDICATIONS: REVIEW OF SYSTEMS CONSTITUTIONAL: chills,malaise, loss of appetite Absent: fever, diaphoresis, generalized weakness, weight change HEENT: rhinorrhea, Absent: nasal congestion, throat pain, throat swelling, difficulty swallowing, mouth swelling, ear pain, eye pain, visual changes CARDIOVASCULAR: Absent: chest pain, syncope, palpitations, irregular heart rate, lightheadedness, peripheral edema RESPIRATORY: Absent: cough, shortness of breath, dyspnea with exertion, orthopnea, wheezing, stridor, hemoptysis GASTROINTESTINAL: diarrhea Absent: abdominal pain, abdominal distension, nausea, vomiting, constipation, melena, hematochezia GENITOURINARY: Absent: dysuria, frequency, urgency, hesitancy, hematuria, flank pain, genital pain MUSCULOSKELETAL: myalgia, Absent: arthralgia, joint swelling, back pain, neck pain SKIN: Absent: rash, itching, pallor HEMATOLOGIC/IMMUNOLOGIC: Absent: easy bleeding, easy bruising, lymphadenopathy, frequent infections ENDOCRINE: Absent: unexplained weight gain, unexplained weight loss, heat intolerance, cold intolerance NEUROLOGIC: headache Absent: focal weakness or paresthesias, dizziness, unsteady gait, seizure, mental status changes, bladder or bowel incontinence PSYCHIATRIC: Absent: anxiety, depression, suicidal or homicidal ideation, hallucinations. PHYSICAL EXAMINATION Vital Signs - 24 hr 06/14/20 06/14/20 06/14/20 17:13 18:49 19:28 Temperature 99.7 F H 100.3 F H 100.4 F H Pulse Rate 93 H Pulse Rate [ 64 62 Left Radial] Respiratory 18 20 19 Rate Blood Pressure 108/48 L Blood Pressure 115/65 111/63 [Left Arm] O2 Sat by Pulse 100 97 98 Oximetry (%) 06/14/20 06/14/20 06/14/20 22:08 22:11 22:12 Temperature 98.3 F Pulse Rate Pulse Rate [ 63 Left Radial] Respiratory 18 Rate Blood Pressure 108/61 Blood Pressure [Left Arm] O2 Sat by Pulse 99 99 Oximetry (%) GENERAL: Awake, alert, and fully oriented, in no acute distress. HEAD: Normal with no signs of trauma. EYES: Pupils equal, round and reactive to light, extraocular movements intact, sclera anicteric, conjunctiva clear. No lid lag. EARS, NOSE, THROAT: Dry mucous membranes. Ears normal, nares patent, oropharynx clear without exudates. NECK: Normal range of motion, supple without lymphadenopathy, JVD, or masses. LUNGS: Breath sounds equal, clear to auscultation bilaterally. No wheezes, and no crackles. No accessory muscle use. HEART: Regular rate and rhythm, normal S1 and S2 without murmur, rub or gallop. ABDOMEN: hyperactive bowel sounds, Soft, nontender, not distended, no guarding, no rebound, no masses. No hepatomegaly or splenomegaly. MUSCULOSKELETAL: Normal range of motion at all joints. No bony deformities or tenderness. No CVA tenderness. UPPER EXTREMITIES: 2+ pulses, warm, well-perfused. No cyanosis. No clubbing. No peripheral edema. LOWER EXTREMITIES: 2+ pulses, warm, well-perfused. No calf tenderness. No peripheral edema. NEUROLOGICAL: Cranial nerves II-XII intact. Normal speech. Gait not observed. PSYCHIATRIC: Cooperative. Good eye contact. Appropriate mood and affect. SKIN: Warm, dry, normal turgor, no rashes or lesions noted, normal capillary refill. Laboratory Results - last 24 hr 06/14/20 06/14/20 17:30 17:30 WBC 3.4 L RBC 4.85 Hgb 12.7 Hct 38.1 MCV 78.5 L MCH 26.1 MCHC 33.3 RDW 14.4 Plt Count 144 D MPV 9.1 Absolute Neuts (auto) 2.3 Neutrophils % 67.6 Lymphocytes % 23.7 Monocytes % 7.8 Eosinophils % 0.2 D Basophils % 0.7 Nucleated RBC % 0 Sodium 137 Potassium 3.9 Chloride 106 Carbon Dioxide 25 Anion Gap 5 L BUN 8.8 Creatinine 0.7 Est GFR (CKD-EPI)AfAm 114.65 Est GFR (CKD-EPI)NonAf 98.92 Random Glucose 103 Calcium 8.9 Ferritin 112.7 Total Bilirubin 0.3 AST 25 ALT 25 Alkaline Phosphatase 110 C-Reactive Protein 2.3 H Total Protein 7.2 Albumin 3.6 HDL Cholesterol 47 ASSESSMENT/PLAN: This is a 54 y/o female admitted to [facility] for Dehydration, Suspected Covid 19- Infection for further evaluation of their emergent condition. 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 - New Patient This patient is new to me today: Yes Date on this admission: 06/14/20 - Critical Care Critical Care patient: No
[2020-06-14 23:31] VITALS: BMI 26.2
[2020-06-15] MEDS: SODIUM CHLORIDE 1,000 ML IV SCH ×3 (06:16→21:15)
[2020-06-15 09:04] LABS: BASO % 0.8 % (0-2.0); EOS % 1.6 % (0-4.5); HEMATOCRIT 34.8 % (32.4-45.2); HEMOGLOBIN 11.5 GM/dL (10.7-15.3); LYMPH % 35.3 % (8-40); MCH 26.1 pg (25.7-33.7); MCHC 33.1 g/dl (32.0-36.0); MEAN CELL VOLUME 78.9 fl (80-96); MEAN PLT VOLUME 9.9 fl (7.5-11.1); MONO % 7.9 % (3.8-10.2); NEUT % 54.4 % (42.8-82.8); PLATELET COUNT 78 K/MM3 (134-434); RBC 4.41 M/mm3 (3.60-5.2); RDW 14.3 % (11.6-15.6); WHITE BLOOD COUNT 2.7 K/mm3 (4.0-10.0)
[2020-06-15 09:32] LABS: ALBUMIN 2.9 g/dl (3.4-5.0); BILIRUBIN,TOTAL 0.3 mg/dL (0.2-1); BLOOD UREA NITROGEN 6.2 mg/dL (7-18); CALCIUM 8.1 mg/dL (8.5-10.1); CREATININE 0.6 mg/dL (0.55-1.3); MAGNESIUM 2.1 mg/dL (1.8-2.4); POTASSIUM 4.1 mmol/L (3.5-5.1); TOT PROT 5.9 g/dl (6.4-8.2)
[2020-06-15] MEDS: MULTIVITAMINS (DAILY MVI) TABLET (FP) PO SCH (10:01)
[2020-06-15] MEDS: ZINC SULFATE 220 MG CAPSULE (FP) PO SCH (10:01)
[2020-06-15] MEDS: ACETAMINOPHEN 325 MG TABLET (FP) PO PRN ×2 (11:43→19:38)
--- NOTE | 2020-06-15 13:28 | PN ---
Progress Note, Physician Chief Complaint: SEEN IN RADIOLOGY CT CHEST & ABD PENDING CXR SHOWES POSSIBLE COVID PNEUMONITIS?? SOB/ABD PAIN NO FEVERS UNKNOWN SICK CONTACTS - Current Medication List Current Medications: Active Medications Acetaminophen (Tylenol -) 650 mg PO Q6H PRN PRN Reason: FEVER Last Admin: 06/15/20 11:43 Dose: 650 mg Documented by: Sodium Chloride (Normal Saline -) 1,000 mls @ 100 mls/hr IV ASDIR [facility] Last Admin: 06/15/20 06:16 Dose: 100 mls/hr Documented by: Multivitamins/Minerals/Vitamin C (Tab-A-Vit -) 1 tab PO DAILY [facility] Last Admin: 06/15/20 10:01 Dose: 1 tab Documented by: Zinc Sulfate (Orazinc -) 220 mg PO DAILY [facility] Last Admin: 06/15/20 10:01 Dose: 220 mg Documented by: - Objective Vital Signs: Vital Signs Temperature 98.6 F 06/15/20 09:00 Pulse Rate 61 06/15/20 09:00 Respiratory Rate 18 06/15/20 09:00 Blood Pressure 136/62 06/15/20 09:00 O2 Sat by Pulse Oximetry (%) 99 06/15/20 09:00 Constitutional: Yes: Mild Distress Cardiovascular: Yes: Regular Rate and Rhythm Respiratory: Yes: Diminished, On Nasal O2 Gastrointestinal: Yes: Soft Genitourinary: Yes: WNL Musculoskeletal: Yes: WNL Extremities: Yes: WNL Edema: No Integumentary: Yes: WNL Wound/Incision: Yes: Clean/Dry Neurological: Yes: WNL ...Motor Strength: WNL Psychiatric: Yes: WNL Labs: CBC, BMP 06/15/20 07:47 06/15/20 07:47 Problem List - Problems (1) Dehydration Code(s): E86.0 - DEHYDRATION (2) Diarrhea Code(s): R19.7 - DIARRHEA, UNSPECIFIED (3) Fever Code(s): R50.9 - FEVER, UNSPECIFIED (4) Suspected 2019 novel coronavirus infection Code(s): Z20.828 - CONTACT W AND EXPOSURE TO OTH VIRAL COMMUNICABLE DISEASES (5) Weakness Code(s): R53.1 - WEAKNESS Assessment/Plan CT CHEST/ABD & PELVIS PENDING ID CONSULT PULM EVAL CHECK LABS 02 SUPPORT TYLENOL PRN HEPARIN SQ DVT PROPHYLAXIS WILL MONITOR LABS AND F/U WITH PRIMARY TEAM IN AM
[2020-06-15] MEDS ORDERED: ALBUTEROL SO4 2.5/IPRATROPIUM 0.5 INH SOL 3 ML VIAL.NEB. NEB PRN (17:20)
[2020-06-15] MEDS ORDERED: ONDANSETRON 4 MG/2 ML VIAL IVPUSH PRN (17:21)
--- NOTE | 2020-06-15 17:45 | PN ---
Progress Note (short form) - Note Progress Note: ID CONSULT DICTATED R/O COVID-19 R/O VIRAL GASTROENTERITIS LEUKOPENIA/THROMBOCYTOPENIA CEPHALOSPORIN ALLERGY
[2020-06-15] MEDS ORDERED: METOCLOPRAMIDE HCL INJECTION 10 MG/2 ML VIAL IVPB ONE (20:50)
[2020-06-15] MEDS: HEPARIN NA (PORCINE) 5,000 UNITS/ML 1ML VIAL SQ SCH (21:07)
[2020-06-16] MEDS: SODIUM CHLORIDE 1,000 ML IV SCH ×3 (05:42→20:54)
[2020-06-16] MEDS: MULTIVITAMINS (DAILY MVI) TABLET (FP) PO SCH (09:03)
[2020-06-16] MEDS: HEPARIN NA (PORCINE) 5,000 UNITS/ML 1ML VIAL SQ SCH ×2 (09:04→21:05)
[2020-06-16] MEDS: ZINC SULFATE 220 MG CAPSULE (FP) PO SCH (09:04)
--- NOTE | 2020-06-16 10:05 | EKG ---
Test Reason : Blood Pressure : / mmHG Vent. Rate : 066 BPM Atrial Rate : 066 BPM P-R Int : 148 ms QRS Dur : 084 ms QT Int : 434 ms P-R-T Axes : 063 033 039 degrees QTc Int : 454 ms NORMAL SINUS RHYTHM NORMAL ECG WHEN COMPARED WITH ECG OF 13-JUN-2012 18:51, NO SIGNIFICANT CHANGE WAS FOUND Confirmed by Sara Diaz ([id number]) on 06/16/2020 10:05:09 AM Referred By: Confirmed By:Sara Diaz
--- NOTE | 2020-06-16 11:30 | PN ---
Progress Note, Physician Chief Complaint: N/V/D Thrombocytopenia Acute gastritis History of Present Illness: NAD C/O nausea/vomiting/diarrhea - Current Medication List Current Medications: Active Medications Acetaminophen (Tylenol -) 650 mg PO Q6H PRN PRN Reason: FEVER Last Admin: 06/15/20 19:38 Dose: 650 mg Documented by: Albuterol/Ipratropium (Duoneb -) 1 amp NEB Q6H PRN PRN Reason: SHORTNESS OF BREATH Heparin Sodium (Porcine) (Heparin -) 5,000 unit SQ BID [facility] Last Admin: 06/16/20 09:04 Dose: Not Given Documented by: Sodium Chloride (Normal Saline -) 1,000 mls @ 100 mls/hr IV [facility] Last Admin: 06/16/20 05:42 Dose: 100 mls/hr Documented by: Multivitamins/Minerals/Vitamin C (Tab-A-Vit -) 1 tab PO DAILY [facility] Last Admin: 06/16/20 09:03 Dose: 1 tab Documented by: Ondansetron HCl (Zofran Injection) 4 mg IVPUSH Q6H PRN PRN Reason: NAUSEA AND/OR VOMITING Last Admin: 06/16/20 09:04 Dose: 4 mg Documented by: Zinc Sulfate (Orazinc -) 220 mg PO DAILY [facility] Last Admin: 06/16/20 09:04 Dose: 220 mg Documented by: - Objective Vital Signs: Vital Signs Temperature 98.3 F 06/16/20 05:00 Pulse Rate 62 06/16/20 05:00 Respiratory Rate 18 06/15/20 21:00 Blood Pressure 124/68 06/16/20 05:00 O2 Sat by Pulse Oximetry (%) 97 06/16/20 05:00 Constitutional: Yes: Well Nourished, No Distress, Calm Cardiovascular: Yes: Regular Rate and Rhythm Respiratory: Yes: Regular, CTA Bilaterally Gastrointestinal: Yes: Soft, Hyperactive Bowel Sounds, Tenderness, Epigastrium Genitourinary: Yes: WNL Breast(s): Yes: WNL Musculoskeletal: Yes: WNL Extremities: Yes: WNL Edema: No Peripheral Pulses WNL: Yes Neurological: Yes: Alert, Oriented Psychiatric: Yes: Alert, Oriented Labs: CBC, BMP 06/15/20 07:47 06/15/20 07:47 Problem List - Problems (1) Nausea vomiting and diarrhea Assessment/Plan: -NPO -GI consult -Continue IVF -D/C Zinc- Can exacerbate symptoms -ID ocnsult on board -CTAP normal -Stool studies pending Problems reviewed: Yes Code(s): R11.2 - NAUSEA WITH VOMITING, UNSPECIFIED; R19.7 - DIARRHEA, UNSPECIFIED (2) Dehydration Problems reviewed: Yes Code(s): E86.0 - DEHYDRATION Assessment/Plan See problem list
--- NOTE | 2020-06-16 12:29 | PN ---
Progress Note, Physician History of Present Illness: AWAKE, WEAK-APPEARING IN BED C/O H/A, GENERALIZED ABDOMINAL PAIN, NON-BLOODY DIARRHEA TEMPS DOWN AFEBRILE BC PRELIM(-) COVID-19 (-) CT CHEST NO INFILTRATE O2 SAT 97% RA CT ABDOMEN ? COLITIS DENIES ILL- CONTACTS, TICK EXPOSURE, RASH DENIES HIV RISK FACTORS - Current Medication List Current Medications: Active Medications Acetaminophen (Tylenol -) 650 mg PO Q6H PRN PRN Reason: FEVER Last Admin: 06/15/20 19:38 Dose: 650 mg Documented by: Albuterol/Ipratropium (Duoneb -) 1 amp NEB Q6H PRN PRN Reason: SHORTNESS OF BREATH Heparin Sodium (Porcine) (Heparin -) 5,000 unit SQ BID [facility] Last Admin: 06/16/20 09:04 Dose: Not Given Documented by: Sodium Chloride (Normal Saline -) 1,000 mls @ 100 mls/hr IV ASDIR [facility] Last Admin: 06/16/20 05:42 Dose: 100 mls/hr Documented by: Multivitamins/Minerals/Vitamin C (Tab-A-Vit -) 1 tab PO DAILY [facility] Last Admin: 06/16/20 09:03 Dose: 1 tab Documented by: Ondansetron HCl (Zofran Injection) 4 mg IVPUSH Q6H PRN PRN Reason: NAUSEA AND/OR VOMITING Last Admin: 06/16/20 09:04 Dose: 4 mg Documented by: Zinc Sulfate (Orazinc -) 220 mg PO DAILY [facility] Last Admin: 06/16/20 09:04 Dose: 220 mg Documented by: - Objective Vital Signs: Vital Signs Temperature 98.3 F 06/16/20 05:00 Pulse Rate 62 06/16/20 05:00 Respiratory Rate 18 06/15/20 21:00 Blood Pressure 124/68 06/16/20 05:00 O2 Sat by Pulse Oximetry (%) 97 06/16/20 05:00 Constitutional: Yes: No Distress Cardiovascular: Yes: Regular Rate and Rhythm, S1, S2 Respiratory: Yes: CTA Bilaterally Gastrointestinal: Yes: Normal Bowel Sounds, Soft, Tenderness, Other (MILD DIFFUSE TENDERNESS) Labs: CBC, BMP 06/15/20 07:47 06/15/20 07:47 Assessment/Plan ? VIRAL GASTROENTERITIS LEUKOPENIA/ THROMBOCYTOPENIA AWAIT BC, STOOL STUDIES REPEAT COVID SWAB HIV TEST OBSERVE OFF ANTIBIOTICS
--- NOTE | 2020-06-16 12:58 | CON.PULM ---
Consult Consult Specialty:: PULM/CCM Referred by:: Hospitalist Reason for Consultation:: R/O COVID19 - History of Present Illness History of Present Illness: 54 F, with essentially no past significant medical history. Admitted via the ER due to 1 day of chills, myalgias, rhinorrhea, nausea, malaise, poor PO intake, multiple episodes of diarrhea. Reports a breakfast wrap from [employer]. She reports practicing social distancing and wearing a mask. She denies fever, cough, sore throat, SOB, OCAMPO, or CP. No travel history. No sick contacts. No hemoptysis. CT : No acute process - History Source History Provided By: Patient Limitations to Obtaining History: No Limitations - Past Medical History Pulmonary: Yes: Bronchitis. No: Asthma, Cancer, COPD, O2 Dependent, Pneumonia, Previously Intubated, Pulmonary Embolus, Pulmonary Fibrosis, Sleep Apnea ...LMP: 11/15/11 ...: No - Alcohol/Substance Use Hx Alcohol Use: No - Smoking History Smoking history: Never smoked Have you smoked in the past 12 months: No Home Medications - Allergies Allergies/Adverse Reactions: Allergies Allergy/AdvReac Type Severity Reaction Status Date / Time cefazolin AdvReac Intermediate Verified 06/14/20 17:13 Review of Systems - Review of Systems Constitutional: reports: Loss of Appetite, Malaise. denies: Chills, Fever, Night Sweats, Unintentional Wgt. Loss Eyes: reports: No Symptoms HENT: reports: No Symptoms Neck: reports: No Symptoms Cardiovascular: denies: Chest Pain, Edema, Palpitations, Shortness of Breath Respiratory: denies: Cough, Hemoptysis, Orthopnea, PND, Snoring, SOB, SOB on Exertion, Wheezing Gastrointestinal: reports: Abdominal Pain, Bloating, Diarrhea. denies: Rectal Bleeding, Vomiting, Vomiting Blood Genitourinary: reports: No Symptoms Breasts: reports: No Symptoms Reported Musculoskeletal: reports: No Symptoms Integumentary: reports: No Symptoms Neurological: reports: No Symptoms Endocrine: reports: No Symptoms Hematology/Lymphatic: reports: No Symptoms Psychiatric: reports: No Symptoms Physical Exam Vital Sings: Vital Signs Temperature 98.0 F 06/16/20 09:00 Pulse Rate 65 06/16/20 09:00 Respiratory Rate 18 06/15/20 21:00 Blood Pressure 125/66 06/16/20 09:00 O2 Sat by Pulse Oximetry (%) 93 L 06/16/20 10:00 Constitutional: Yes: No Distress, Calm Eyes: Yes: Conjunctiva Clear, EOM Intact HENT: Yes: Atraumatic, Normocephalic Neck: Yes: Supple, Trachea Midline Cardiovascular: Yes: Regular Rate and Rhythm Respiratory: No: Accessory Muscle Use, Rales, Rhonchi, SOB, SOB on Exertion, Stridor, Tachypnea, Wheezes ...Inspection: Yes: WNL ...Clubbing: No Gastrointestinal: Yes: Normal Bowel Sounds, Soft Renal/: Yes: WNL Musculoskeletal: Yes: WNL Extremities: Yes: WNL Edema: No Peripheral Pulses WNL: Yes Integumentary: Yes: WNL Neurological: Yes: WNL, Alert, Oriented ...Motor Strength: WNL Psychiatric: Yes: WNL, Alert, Oriented Labs: CBC, BMP 06/15/20 07:47 06/15/20 07:47 Imaging - Results Chest X-ray: Report Reviewed, Image Reviewed Cat Scan: Report Reviewed, Image Reviewed Problem List - Problems (1) Diarrhea Code(s): R19.7 - DIARRHEA, UNSPECIFIED (2) Weakness Code(s): R53.1 - WEAKNESS Assessment/Plan IMP: COVID19 negative with a normal CT chest PLAN: Workup of diarrhea No smoking was counseled Check stool studies VTE prophylaxis Supplemental O2 as needed There is no Pulmonary contraindication for DC planning Thank you. Dr Almonte
[2020-06-16 13:42] LABS: BASO % 0.5 % (0-2.0); EOS % 5.5 % (0-4.5); HEMATOCRIT 37.2 % (32.4-45.2); HEMOGLOBIN 12.1 GM/dL (10.7-15.3); LYMPH % 33.4 % (8-40); MCH 25.4 pg (25.7-33.7); MCHC 32.4 g/dl (32.0-36.0); MEAN CELL VOLUME 78.2 fl (80-96); MEAN PLT VOLUME 9.2 fl (7.5-11.1); MONO % 10.2 % (3.8-10.2); NEUT % 50.4 % (42.8-82.8); PLATELET COUNT 166 K/MM3 (134-434); RBC 4.76 M/mm3 (3.60-5.2); RDW 13.8 % (11.6-15.6); WHITE BLOOD COUNT 4.6 K/mm3 (4.0-10.0)
--- NOTE | 2020-06-16 14:04 | CONS ---
INFECTIOUS DISEASE CONSULTATION DATE OF CONSULTATION: DATE OF DICTATION: 06/16/2020 HISTORY: A 54-year-old female with no significant past medical history, evaluated for possible COVID-19 infection. Patient lives at home with family members. She has been quarantining and has spent little to no time outdoors. She was admitted to the hospital on June 14 after developing a 1-day history of generalized weakness, body ache, chills, fever, malaise, anorexia and nonbloody diarrhea. Symptoms apparently began after she had consumed a meal of chicken from [employer]. No other family members became ill. She denies any ill contacts or travel. She presented to the emergency room where she was noted to have low grade fever, leukopenia and thrombocytopenia. A COVID-19 swab was performed and is pending. At the present time she complains of generalized weakness, malaise and nonbloody diarrhea. Again, no other family members have similar gastrointestinal symptoms. She has no known COVID-19 exposure. She denies any outdoor activity, tick or mosquito bites. PAST MEDICAL HISTORY: Essentially negative. ALLERGIES: To CEFAZOLIN. She had developed a rash when given CEFAZOLIN for surgical prophylaxis. MEDICATIONS: Include albuterol, heparin, Tylenol, zinc, Reglan, Zofran. SOCIAL HISTORY: She resides at home in the community with family members. She is a nonsmoker, nondrinker. No recent hospitalizations. LABORATORY DATA: White count 2.7, neutrophils 54, lymphocytes 35, monocytes 7, ANC 1.5. BUN 6, creatinine 0.6. Liver enzymes normal. C-reactive protein 1.5, ferritin 112, LDH 183, D-dimer 1550. Cultures are pending. PHYSICAL EXAMINATION: General: She is awake seated in chair in no acute distress. Vital Signs: Temperature 98.6, blood pressure 136/62, pulse 61 regular, respirations 18 per minute. HEENT: Sclerae are anicteric. Heart: Sounds S1, S2. Lungs: Clear. Abdomen: Soft. Mild diffuse tenderness to palpation. Extremities: Negative for edema. IMPRESSION: 1. Rule out COVID-19 infection. 2. Leukopenia, thrombocytopenia. 3. Rule out viral gastroenteritis. Await blood cultures. Obtain stool studies. Repeat COVID swab. HIV test. CAT scan abdomen and pelvis. Observe off antibiotic therapy. Thank you for the kind referral. RADHA LAUREN M.D. [id number]
[2020-06-16 14:42] LABS: ALBUMIN 3.6 g/dl (3.4-5.0); BILIRUBIN,TOTAL 0.4 mg/dL (0.2-1); BLOOD UREA NITROGEN 5.5 mg/dL (7-18); CALCIUM 8.9 mg/dL (8.5-10.1); CREATININE 0.6 mg/dL (0.55-1.3); POTASSIUM 3.6 mmol/L (3.5-5.1); TOT PROT 7.3 g/dl (6.4-8.2)
[2020-06-16] MEDS ORDERED: ACETAMINOPHEN 1000 MG/100 ML VIAL (NON FORMULARY) IVPB PRN (17:22)
--- NOTE | 2020-06-16 19:58 | CON.GI ---
Consult Consult Specialty:: GI - History of Present Illness History of Present Illness: 54 F, with essentially no past significant medical history. Admitted via the ER due to 1 day of chills, myalgias, rhinorrhea, nausea, malaise, poor PO intake, multiple episodes of diarrhea. Patient started to have clears but has redeveloped nausea, vomiting and diarrhea. Her leukopenia and thrombocytopenia has resolved. She is C.diff negative. Blood cultures are negative . HIV is pending, CoVID negative - Past Medical History Pulmonary: Yes: Bronchitis. No: Asthma, Cancer, COPD, O2 Dependent, Pneumonia, Previously Intubated, Pulmonary Embolus, Pulmonary Fibrosis, Sleep Apnea ...LMP: 11/15/11 ...: No - Alcohol/Substance Use Hx Alcohol Use: No - Smoking History Smoking history: Never smoked Have you smoked in the past 12 months: No Home Medications - Allergies Allergies/Adverse Reactions: Allergies Allergy/AdvReac Type Severity Reaction Status Date / Time cefazolin AdvReac Intermediate Verified 06/14/20 17:13 Physical Exam-GI Vital Signs: Vital Signs Temperature 98.4 F 06/16/20 15:26 Pulse Rate 59 L 06/16/20 15:26 Respiratory Rate 16 06/16/20 15:26 Blood Pressure 109/63 06/16/20 15:26 O2 Sat by Pulse Oximetry (%) 95 06/16/20 15:26 Constitutional: Yes: Well Nourished Eyes: Yes: Conjunctiva Clear HENT: Yes: Atraumatic Neck: Yes: Supple Cardiovascular: Yes: Regular Rate and Rhythm Respiratory: Yes: CTA Bilaterally ...Palpate: Yes: Soft. No: Firm/Rigid, Guarding, Hepatomegaly, Mass, Pulsatile Mass, Splenomegaly, Tenderness Labs: CBC, BMP 06/16/20 12:23 06/16/20 12:23 Problem List - Problems (1) Infectious diarrhea Assessment/Plan: RE> stool calpotrectin ESR CRP IV hydration IV Reglan IV Pantoprazole await stool cultures and O and P Code(s): A09 - INFECTIOUS GASTROENTERITIS AND COLITIS, UNSPECIFIED
[2020-06-16] MEDS ORDERED: PANTOPRAZOLE SODIUM 40 MG in SODIUM CHLORIDE 100 ML IVPB SCH (20:15)
[2020-06-16] MEDS: PANTOPRAZOLE SODIUM 40 MG VIAL IVPUSH SCH (20:54)
[2020-06-17] MEDS: METOCLOPRAMIDE HCL INJECTION 10 MG/2 ML VIAL IVPB SCH ×3 (02:07→18:25)
[2020-06-17] MEDS: SODIUM CHLORIDE 1,000 ML IV SCH ×2 (03:26→09:47)
[2020-06-17] MEDS: HEPARIN NA (PORCINE) 5,000 UNITS/ML 1ML VIAL SQ SCH ×2 (09:34→21:51)
[2020-06-17] MEDS: PANTOPRAZOLE SODIUM 40 MG VIAL IVPUSH SCH (09:44)
--- NOTE | 2020-06-17 11:50 | PN ---
Progress Note, Physician Chief Complaint: N/V/D Thrombocytopenia Acute gastritis History of Present Illness: NAD Denies nausea/vomiting/diarrhea - Current Medication List Current Medications: Active Medications Acetaminophen (Ofirmev Injection -) 1,000 mg IVPB Q6H PRN PRN Reason: PAIN Stop: 06/17/20 17:22 Last Admin: 06/16/20 18:22 Dose: 1,000 mg Documented by: Albuterol/Ipratropium (Duoneb -) 1 amp NEB Q6H PRN PRN Reason: SHORTNESS OF BREATH Heparin Sodium (Porcine) (Heparin -) 5,000 unit SQ BID [facility] Last Admin: 06/17/20 09:34 Dose: Not Given Documented by: Metoclopramide HCl (Reglan Injection -) 10 mg IVPB Q8H-IV [facility] Last Admin: 06/17/20 09:44 Dose: 10 mg Documented by: Ondansetron HCl (Zofran Injection) 4 mg IVPUSH Q6H PRN PRN Reason: NAUSEA AND/OR VOMITING Last Admin: 06/16/20 09:04 Dose: 4 mg Documented by: Pantoprazole Sodium (Protonix Iv) 40 mg IVPUSH DAILY [facility] Last Admin: 06/17/20 09:44 Dose: 40 mg Documented by: - Objective Vital Signs: Vital Signs Temperature 98.4 F 06/17/20 10:00 Pulse Rate 61 06/17/20 10:00 Respiratory Rate 18 06/17/20 10:00 Blood Pressure 125/60 06/17/20 10:00 O2 Sat by Pulse Oximetry (%) 96 06/17/20 10:00 Constitutional: Yes: Well Nourished, No Distress, Calm Cardiovascular: Yes: Regular Rate and Rhythm Respiratory: Yes: Regular, CTA Bilaterally Gastrointestinal: Yes: Normal Bowel Sounds, Soft Genitourinary: Yes: WNL Musculoskeletal: Yes: WNL Extremities: Yes: WNL Edema: No Peripheral Pulses WNL: Yes Neurological: Yes: Alert, Oriented Psychiatric: Yes: Alert, Oriented Labs: CBC, BMP 06/16/20 12:23 06/16/20 12:23 Problem List - Problems (1) Nausea vomiting and diarrhea Assessment/Plan: -Trial of clear liquid diet, if tolerates for lunch, would upgrade to regular diet for dinner -GI consult -Continue IVF -D/C Zinc- Can exacerbate symptoms -ID Consult on board -CTAP normal -Stool studies pending -Repeat COVID negative Problems reviewed: Yes Code(s): R11.2 - NAUSEA WITH VOMITING, UNSPECIFIED; R19.7 - DIARRHEA, UNSPECIFIED (2) Dehydration Problems reviewed: Yes Code(s): E86.0 - DEHYDRATION Assessment/Plan See problem list
--- NOTE | 2020-06-17 12:47 | PN ---
Progress Note (short form) - Note Progress Note: Less GI symptoms today. Comfortable on RA. No CP or SOB. No acute events overnight. Intake & Output 06/14/20 06/15/20 06/16/20 06/17/20 23:59 23:59 23:59 23:59 Intake Total 1220 2540 1800 Balance 1220 2540 1800 Weight 134 lb 8 oz Last Vital Signs Temp Pulse Resp BP Pulse Ox 98.4 F 61 18 125/60 96 06/17/20 10:00 06/17/20 10:00 06/17/20 10:00 06/17/20 10:00 06/17/20 10:00 Active Medications Acetaminophen (Ofirmev Injection -) 1,000 mg IVPB Q6H PRN PRN Reason: PAIN Stop: 06/17/20 17:22 Last Admin: 06/16/20 18:22 Dose: 1,000 mg Documented by: Albuterol/Ipratropium (Duoneb -) 1 amp NEB Q6H PRN PRN Reason: SHORTNESS OF BREATH Heparin Sodium (Porcine) (Heparin -) 5,000 unit SQ BID [facility] Last Admin: 06/17/20 09:34 Dose: Not Given Documented by: Metoclopramide HCl (Reglan Injection -) 10 mg IVPB Q8H-IV [facility] Last Admin: 06/17/20 09:44 Dose: 10 mg Documented by: Ondansetron HCl (Zofran Injection) 4 mg IVPUSH Q6H PRN PRN Reason: NAUSEA AND/OR VOMITING Last Admin: 06/16/20 09:04 Dose: 4 mg Documented by: Pantoprazole Sodium (Protonix Iv) 40 mg IVPUSH DAILY [facility] Last Admin: 06/17/20 09:44 Dose: 40 mg Documented by: Constitutional: Yes: No Distress, Calm Eyes: Yes: Conjunctiva Clear, EOM Intact HENT: Yes: Atraumatic, Normocephalic Neck: Yes: Supple, Trachea Midline Cardiovascular: Yes: Regular Rate and Rhythm Respiratory: No: Accessory Muscle Use, Rales, Rhonchi, SOB, SOB on Exertion, Stridor, Tachypnea, Wheezes ...Inspection: Yes: WNL ...Clubbing: No Gastrointestinal: Yes: Normal Bowel Sounds, Soft Renal/: Yes: WNL Musculoskeletal: Yes: WNL Extremities: Yes: WNL Edema: No Peripheral Pulses WNL: Yes Integumentary: Yes: WNL Neurological: Yes: WNL, Alert, Oriented ...Motor Strength: WNL Psychiatric: Yes: WNL, Alert, Oriented Labs: Laboratory Results - last 24 hr 06/16/20 06/16/20 06/16/20 12:20 12:23 12:23 WBC 4.6 RBC 4.76 Hgb 12.1 Hct 37.2 MCV 78.2 L MCH 25.4 L MCHC 32.4 RDW 13.8 Plt Count 166 D MPV 9.2 Absolute Neuts (auto) 2.3 Neutrophils % 50.4 Lymphocytes % 33.4 Monocytes % 10.2 Eosinophils % 5.5 H D Basophils % 0.5 Nucleated RBC % 0 Sodium 141 Potassium 3.6 Chloride 109 H Carbon Dioxide 25 Anion Gap 8 BUN 5.5 L Creatinine 0.6 Est GFR (CKD-EPI)AfAm 120.61 Est GFR (CKD-EPI)NonAf 104.06 Random Glucose 80 Calcium 8.9 Total Bilirubin 0.4 AST 32 ALT 38 Alkaline Phosphatase 90 Total Protein 7.3 Albumin 3.6 COVID-19 ([facility]) Not detected HIV 1&2 Ag/Ab, 4th Gen SARS-CoV-2 Ab Interp 06/16/20 06/16/20 12:23 15:10 WBC RBC Hgb Hct MCV MCH MCHC RDW Plt Count MPV Absolute Neuts (auto) Neutrophils % Lymphocytes % Monocytes % Eosinophils % Basophils % Nucleated RBC % Sodium Potassium Chloride Carbon Dioxide Anion Gap BUN Creatinine Est GFR (CKD-EPI)AfAm Est GFR (CKD-EPI)NonAf Random Glucose Calcium Total Bilirubin AST ALT Alkaline Phosphatase Total Protein Albumin COVID-19 ([facility]) HIV 1&2 Ag/Ab, 4th Gen Non reactive SARS-CoV-2 Ab Interp Non-reactive Imaging - Results Chest X-ray: Report Reviewed, Image Reviewed Cat Scan: Report Reviewed, Image Reviewed Problem List - Problems (1) Diarrhea Code(s): R19.7 - DIARRHEA, UNSPECIFIED (2) Weakness Code(s): R53.1 - WEAKNESS Assessment/Plan IMP: COVID19 negative with a normal CT chest PLAN: GI workup ongoing No smoking was counseled VTE prophylaxis Supplemental O2 as needed There is no Pulmonary contraindication for DC planning Dr Almonte Problem List - Problems (1) Diarrhea Code(s): R19.7 - DIARRHEA, UNSPECIFIED (2) Weakness Code(s): R53.1 - WEAKNESS
--- NOTE | 2020-06-17 16:10 | PN.GI ---
GI Progress Note Subjective: tolerated clear liquids no nausea and vomiting - Objective Vital Signs: Vital Signs Temperature 98.1 F 06/17/20 14:31 Pulse Rate 61 06/17/20 14:31 Respiratory Rate 18 06/17/20 14:31 Blood Pressure 141/71 06/17/20 14:31 O2 Sat by Pulse Oximetry (%) 95 06/17/20 14:31 Constitutional: Well Nourished Eyes: Yes: Conjunctiva Clear, Occular Prosthesis Neck: Yes: Supple Cardiovascular: Yes: Regular Rate and Rhythm Respiratory: Yes: CTA Bilaterally ...Palpate: Yes: Soft. No: Firm/Rigid, Guarding, Hepatomegaly, Mass, Pulsatile Mass, Splenomegaly, Tenderness Labs: CBC, BMP 06/16/20 12:23 06/16/20 12:23 Problem List - Problems (1) Infectious diarrhea Assessment/Plan: --resolved R> advance diet switch to po Pantoprazole and Reglan await stool analysis Code(s): A09 - INFECTIOUS GASTROENTERITIS AND COLITIS, UNSPECIFIED
[2020-06-18] MEDS: METOCLOPRAMIDE HCL INJECTION 10 MG/2 ML VIAL IVPB SCH ×3 (01:20→17:19)
[2020-06-18] MEDS: PANTOPRAZOLE 40 MG TABLET PO SCH (09:37)
[2020-06-18] MEDS: HEPARIN NA (PORCINE) 5,000 UNITS/ML 1ML VIAL SQ SCH ×2 (09:37→21:38)
--- NOTE | 2020-06-18 10:03 | PN ---
Progress Note, Physician - Current Medication List Current Medications: Active Medications Albuterol/Ipratropium (Duoneb -) 1 amp NEB Q6H PRN PRN Reason: SHORTNESS OF BREATH Heparin Sodium (Porcine) (Heparin -) 5,000 unit SQ BID [facility] Last Admin: 06/18/20 09:37 Dose: Not Given Documented by: Metoclopramide HCl (Reglan Injection -) 10 mg IVPB Q8H-IV [facility] Last Admin: 06/18/20 09:37 Dose: 10 mg Documented by: Ondansetron HCl (Zofran Injection) 4 mg IVPUSH Q6H PRN PRN Reason: NAUSEA AND/OR VOMITING Last Admin: 06/16/20 09:04 Dose: 4 mg Documented by: Pantoprazole Sodium (Protonix -) 40 mg PO DAILY [facility] Last Admin: 06/18/20 09:37 Dose: 40 mg Documented by: - Objective Vital Signs: Vital Signs Temperature 97.9 F 06/18/20 08:59 Pulse Rate 79 06/18/20 08:59 Respiratory Rate 18 06/18/20 08:59 Blood Pressure 130/68 06/18/20 08:59 O2 Sat by Pulse Oximetry (%) 95 06/18/20 08:59 Cardiovascular: Yes: Regular Rate and Rhythm Respiratory: Yes: Regular, CTA Bilaterally Gastrointestinal: Yes: Normal Bowel Sounds, Soft. No: Tenderness Labs: CBC, BMP 06/16/20 12:23 06/16/20 12:23 Problem List - Problems (1) Nausea vomiting and diarrhea Assessment/Plan: -Tolerating regular diet for dinner -GI consult noted -dc ivf -D/C Zinc- Can exacerbate symptoms -ID Consult on board -CTAP normal -Stool studies pending -Repeat COVID negative Code(s): R11.2 - NAUSEA WITH VOMITING, UNSPECIFIED; R19.7 - DIARRHEA, UNSPECIFIED (2) Dehydration Code(s): E86.0 - DEHYDRATION (3) D-dimer, elevated Assessment/Plan: pulm on case--will discuss Code(s): R79.89 - OTHER SPECIFIED ABNORMAL FINDINGS OF BLOOD CHEMISTRY
--- NOTE | 2020-06-18 12:15 | PN ---
Progress Note (short form) - Note Progress Note: Less GI symptoms today. Comfortable on RA. No CP or SOB. No acute events overnight. Noted DDimer 1550. Intake & Output 06/15/20 06/16/20 06/17/20 06/18/20 23:59 23:59 23:59 23:59 Intake Total 1220 2540 3220 120 Balance 1220 2540 3220 120 Last Vital Signs Temp Pulse Resp BP Pulse Ox 97.9 F 79 18 130/68 95 06/18/20 08:59 06/18/20 08:59 06/18/20 08:59 06/18/20 08:59 06/18/20 08:59 Active Medications Albuterol/Ipratropium (Duoneb -) 1 amp NEB Q6H PRN PRN Reason: SHORTNESS OF BREATH Heparin Sodium (Porcine) (Heparin -) 5,000 unit SQ BID [facility] Last Admin: 06/18/20 09:37 Dose: Not Given Documented by: Metoclopramide HCl (Reglan Injection -) 10 mg IVPB Q8H-IV [facility] Last Admin: 06/18/20 09:37 Dose: 10 mg Documented by: Ondansetron HCl (Zofran Injection) 4 mg IVPUSH Q6H PRN PRN Reason: NAUSEA AND/OR VOMITING Last Admin: 06/16/20 09:04 Dose: 4 mg Documented by: Pantoprazole Sodium (Protonix -) 40 mg PO DAILY [facility] Last Admin: 06/18/20 09:37 Dose: 40 mg Documented by: Constitutional: Yes: No Distress, Calm Eyes: Yes: Conjunctiva Clear, EOM Intact HENT: Yes: Atraumatic, Normocephalic Neck: Yes: Supple, Trachea Midline Cardiovascular: Yes: Regular Rate and Rhythm Respiratory: No: Accessory Muscle Use, Rales, Rhonchi, SOB, SOB on Exertion, Stridor, Tachypnea, Wheezes ...Inspection: Yes: WNL ...Clubbing: No Gastrointestinal: Yes: Normal Bowel Sounds, Soft Renal/: Yes: WNL Musculoskeletal: Yes: WNL Extremities: Yes: WNL Edema: No Peripheral Pulses WNL: Yes Integumentary: Yes: WNL Neurological: Yes: WNL, Alert, Oriented ...Motor Strength: WNL Psychiatric: Yes: WNL, Alert, Oriented Labs: Imaging - Results Chest X-ray: Report Reviewed, Image Reviewed Cat Scan: Report Reviewed, Image Reviewed Problem List - Problems (1) Diarrhea Code(s): R19.7 - DIARRHEA, UNSPECIFIED (2) Weakness Code(s): R53.1 - WEAKNESS Assessment/Plan IMP: COVID19 negative with a normal CT chest Low clinical suspicion of thrombosis but will order Dupplex to R/O peripheral VTE : No respiratory symptoms to suggest PE PLAN: Bilateral LE Dupplex ordered GI workup ongoing No smoking was counseled VTE prophylaxis Supplemental O2 as needed There is no Pulmonary contraindication for DC planning Dr Almonte Problem List - Problems (1) Diarrhea Code(s): R19.7 - DIARRHEA, UNSPECIFIED Qualifiers: Diarrhea type: unspecified type Qualified Code(s): R19.7 - Diarrhea, unspecified (2) Weakness Code(s): R53.1 - WEAKNESS
--- NOTE | 2020-06-18 14:18 | PN ---
Progress Note, Physician History of Present Illness: AWAKE, ALERT IN BED REPORTS LOOSE STOOL TEMPS DOWN AFEBRILE BC (-) COVID-19 (-) X2 HIV(-) LEUKOPENIA/ THROMBOCYTOPENIA RESOLVED CT CHEST NO INFILTRATE O2 SAT 97% RA CT ABDOMEN ? COLITIS DENIES ILL- CONTACTS, TICK EXPOSURE, RASH DENIES HIV RISK FACTORS - Current Medication List Current Medications: Active Medications Albuterol/Ipratropium (Duoneb -) 1 amp NEB Q6H PRN PRN Reason: SHORTNESS OF BREATH Heparin Sodium (Porcine) (Heparin -) 5,000 unit SQ BID [facility] Last Admin: 06/18/20 09:37 Dose: Not Given Documented by: Metoclopramide HCl (Reglan Injection -) 10 mg IVPB Q8H-IV [facility] Last Admin: 06/18/20 09:37 Dose: 10 mg Documented by: Ondansetron HCl (Zofran Injection) 4 mg IVPUSH Q6H PRN PRN Reason: NAUSEA AND/OR VOMITING Last Admin: 06/16/20 09:04 Dose: 4 mg Documented by: Pantoprazole Sodium (Protonix -) 40 mg PO DAILY [facility] Last Admin: 06/18/20 09:37 Dose: 40 mg Documented by: - Objective Vital Signs: Vital Signs Temperature 98.3 F 06/18/20 14:12 Pulse Rate 74 06/18/20 14:12 Respiratory Rate 18 06/18/20 14:12 Blood Pressure 139/74 06/18/20 14:12 O2 Sat by Pulse Oximetry (%) 95 06/18/20 14:12 Constitutional: Yes: No Distress Eyes: Yes: Conjunctiva Clear Cardiovascular: Yes: Regular Rate and Rhythm, S1, S2 Respiratory: Yes: CTA Bilaterally Gastrointestinal: Yes: Normal Bowel Sounds, Soft. No: Tenderness Edema: No Labs: CBC, BMP 06/16/20 12:23 06/16/20 12:23 Assessment/Plan ? VIRAL GASTROENTERITIS LEUKOPENIA/ THROMBOCYTOPENIA RESOLVED STOOL STUDIES UNREVEALING REPEAT COVID SWAB NEGATIVE HIV TEST NEGATIVE OBSERVE OFF ANTIBIOTICS
[2020-06-19] MEDS: METOCLOPRAMIDE HCL INJECTION 10 MG/2 ML VIAL IVPB SCH ×3 (02:59→17:44)
--- NOTE | 2020-06-19 08:01 | HOSP ---
Subjective - Review of Symptoms Events since last encounter: hospitalist encounter Notified by the night RN that the patient's IV site infiltrated with erythema and pus to the site, was asked to assess. Arrived to bedside, patient is AAOx3, she reports pain, erythema and edema to right antecubital. Patient denies numbness and parasthesias. Patient examined see EMR Plan: Elevate extremity Apply warm/ice packs alternating as tolerated Tylenol prn Neurovascular checks Other Systems: Integumentary: Erythema, white granulation, swelling, with induration to right antecubital fossa Physical Examination Vital Signs: Vital Signs Temperature 99.1 F 06/19/20 06:57 Pulse Rate 77 06/19/20 06:57 Respiratory Rate 20 06/19/20 06:57 Blood Pressure 119/61 06/19/20 06:57 O2 Sat by Pulse Oximetry (%) 97 06/19/20 06:57 Constitutional: Yes: Well Nourished, No Distress, Calm Eyes: Yes: WNL, Conjunctiva Clear, EOM Intact, PERRL HENT: Yes: WNL, Atraumatic, Normocephalic Neck: Yes: WNL, Supple, Trachea Midline Cardiovascular: Yes: WNL, Regular Rate and Rhythm, S1, S2 Respiratory: Yes: WNL, Regular, CTA Bilaterally Gastrointestinal: Yes: WNL, Normal Bowel Sounds, Soft ...Rectal Exam: Yes: Deferred Renal/: Yes: WNL Breast(s): Yes: WNL Musculoskeletal: Yes: WNL Extremities: Yes: WNL Edema: No Peripheral Pulses WNL: Yes Integumentary: Yes: Erythema (R- AC) Wound/Incision: Yes: Reddened (R- AC) Neurological: Yes: WNL, Alert, Oriented ...Motor Strength: WNL Psychiatric: Yes: WNL, Alert, Oriented Labs: CBC, BMP 06/16/20 12:23 06/16/20 12:23 Hospitalist Encounter Assessment: This is a 54 y/o female admitted to [facility] for Dehydration, Suspected Covid 19- Infection Outcome: Patient tolerated warm compress, reports some relief d/w RN Will continue to monitor, PMD to resume care in am Recommendations/Interventions: Consider US if increased swelling, numbness
--- NOTE | 2020-06-19 09:06 | DS ---
Physical Examination Vital Signs: Vital Signs Temperature 99.1 F 06/19/20 06:57 Pulse Rate 77 06/19/20 06:57 Respiratory Rate 20 06/19/20 06:57 Blood Pressure 119/61 06/19/20 06:57 O2 Sat by Pulse Oximetry (%) 97 06/19/20 06:57 Cardiovascular: Yes: Regular Rate and Rhythm Respiratory: Yes: Regular, CTA Bilaterally Gastrointestinal: Yes: Normal Bowel Sounds, Soft Extremities: Yes: Erythema (overthe right forearm) Labs: CBC, BMP 06/16/20 12:23 06/16/20 12:23 Discharge Summary Problems reviewed: Yes Reason For Visit: DIARRHEA WEAKNESS INFLUENZA LIKE SYMPTOMS Current Active Problems D-dimer, elevated (Acute) Dehydration (Acute) Diarrhea (Acute) Fever (Acute) Infectious diarrhea (Acute) Nausea vomiting and diarrhea (Acute) Suspected 2019 novel coronavirus infection (Acute) Weakness (Acute) Hospital Course: - Problems (1) Nausea vomiting and diarrhea Assessment/Plan: -Tolerating regular diet for dinner -GI consult noted -dc ivf -D/C Zinc- Can exacerbate symptoms -ID Consult on board -CTAP normal -Stool studies pending -Repeat COVID negative Code(s): R11.2 - NAUSEA WITH VOMITING, UNSPECIFIED; R19.7 - DIARRHEA, UNSPECIFIED (2) Phlebitis of the -iv out -local care -abx (3) D-dimer, elevated Assessment/Plan: pulm on case--will discuss Code(s): R79.89 - OTHER SPECIFIED ABNORMAL FINDINGS OF BLOOD CHEMISTRY Condition: Stable - Instructions Diet, Activity, Other Instructions: warm soaks to forearm if any worsening or fever to the Emergency Room Referrals: Bertha Kincaid MD [Primary Care Provider] - 06/23/20 - Home Medications Comprehensive Discharge Medication List: Ambulatory Orders Bacitracin - [Bacitracin Topical Ointment -] 1 applic TP BID #1 tube 06/19/20 Cephalexin Monohydrate [Keflex -] 500 mg PO BID #14 capsule 06/19/20
[2020-06-19] MEDS: HEPARIN NA (PORCINE) 5,000 UNITS/ML 1ML VIAL SQ SCH ×2 (09:23→22:02)
[2020-06-19] MEDS: PANTOPRAZOLE 40 MG TABLET PO SCH (09:23)
[2020-06-19] MEDS: BACITRACIN 15 GM TUBE TOPICAL OINTMENT TP SCH ×2 (09:23→21:58)
[2020-06-19] MEDS ORDERED: VANCOMYCIN 1 GM in D5W (PRE-DOCKED) 1,000 MG/250 ML IVPB ONE (09:45)
[2020-06-19] MEDS ORDERED: CEPHALEXIN MONOHYDRATE 500 MG CAPSULE (UD) PO SCH (10:00)
--- NOTE | 2020-06-19 12:16 | PN ---
Progress Note (short form) - Note Progress Note: Phlebitis at IV site Right arm. Comfortable on RA. No CP or SOB. Intake & Output 06/16/20 06/17/20 06/18/20 06/19/20 23:59 23:59 23:59 23:59 Intake Total 2540 3220 940 120 Balance 2540 3220 940 120 Last Vital Signs Temp Pulse Resp BP Pulse Ox 100.6 F H 79 20 130/72 97 06/19/20 09:00 06/19/20 09:00 06/19/20 09:00 06/19/20 09:00 06/19/20 09:00 Active Medications Albuterol/Ipratropium (Duoneb -) 1 amp NEB Q6H PRN PRN Reason: SHORTNESS OF BREATH Bacitracin (Bacitracin -) 1 applic TP BID [facility] Last Admin: 06/19/20 09:23 Dose: 1 applic Documented by: Heparin Sodium (Porcine) (Heparin -) 5,000 unit SQ BID [facility] Last Admin: 06/19/20 09:23 Dose: Not Given Documented by: Metoclopramide HCl (Reglan Injection -) 10 mg IVPB Q8H-IV [facility] Last Admin: 06/19/20 09:29 Dose: Not Given Documented by: Ondansetron HCl (Zofran Injection) 4 mg IVPUSH Q6H PRN PRN Reason: NAUSEA AND/OR VOMITING Last Admin: 06/16/20 09:04 Dose: 4 mg Documented by: Pantoprazole Sodium (Protonix -) 40 mg PO DAILY [facility] Last Admin: 06/19/20 09:23 Dose: 40 mg Documented by: Constitutional: Yes: No Distress, Calm Eyes: Yes: Conjunctiva Clear, EOM Intact HENT: Yes: Atraumatic, Normocephalic Neck: Yes: Supple, Trachea Midline Cardiovascular: Yes: Regular Rate and Rhythm Respiratory: No: Accessory Muscle Use, Rales, Rhonchi, SOB, SOB on Exertion, Stridor, Tachypnea, Wheezes ...Inspection: Yes: WNL ...Clubbing: No Gastrointestinal: Yes: Normal Bowel Sounds, Soft Renal/: Yes: WNL Musculoskeletal: Yes: WNL Extremities: Yes: WNL Edema: No Peripheral Pulses WNL: Yes Integumentary: Yes: Right antecubital induration Neurological: Yes: WNL, Alert, Oriented ...Motor Strength: WNL Psychiatric: Yes: WNL, Alert, Oriented Labs: Imaging - Results Chest X-ray: Report Reviewed, Image Reviewed Cat Scan: Report Reviewed, Image Reviewed Problem List - Problems (1) Diarrhea Code(s): R19.7 - DIARRHEA, UNSPECIFIED (2) Weakness Code(s): R53.1 - WEAKNESS Assessment/Plan IMP: COVID19 negative with a normal CT chest Low clinical suspicion of thrombosis : Bilateral LE DVT as ruled out Left popliteal Bakers cyst PLAN: No smoking was counseled VTE prophylaxis Supplemental O2 as needed There is no Pulmonary contraindication for DC planning Dr Almonte Problem List - Problems (1) Diarrhea Code(s): R19.7 - DIARRHEA, UNSPECIFIED Qualifiers: Diarrhea type: unspecified type Qualified Code(s): R19.7 - Diarrhea, unspecified (2) Weakness Code(s): R53.1 - WEAKNESS
[2020-06-19 12:22] LABS: BASO % 0.6 % (0-2.0); EOS % 4.2 % (0-4.5); HEMATOCRIT 36.4 % (32.4-45.2); HEMOGLOBIN 12.1 GM/dL (10.7-15.3); LYMPH % 25.9 % (8-40); MCH 26.1 pg (25.7-33.7); MCHC 33.4 g/dl (32.0-36.0); MEAN CELL VOLUME 78.1 fl (80-96); MEAN PLT VOLUME 8.8 fl (7.5-11.1); MONO % 8.4 % (3.8-10.2); NEUT % 60.9 % (42.8-82.8); PLATELET COUNT 207 K/MM3 (134-434); RBC 4.66 M/mm3 (3.60-5.2); RDW 13.8 % (11.6-15.6)
[2020-06-19 12:49] LABS: ALBUMIN 3.8 g/dl (3.4-5.0); BILIRUBIN,TOTAL 0.5 mg/dL (0.2-1); BLOOD UREA NITROGEN 11.9 mg/dL (7-18); CREATININE 0.7 mg/dL (0.55-1.3); POTASSIUM 3.7 mmol/L (3.5-5.1); TOT PROT 7.5 g/dl (6.4-8.2)
--- NOTE | 2020-06-19 14:48 | CONSULT ---
- Consultation REQUESTING PROVIDER: Vascular Surgery - Wilfrido Santiago CONSULT REQUEST: We have been asked to surgically evaluate this patient's RUE for phlebitis PCP: Bertha Kincaid HPI: Called to eval 54yo female admitted to hospital and being medically managed for n/v/d and fever. Had peripheral IV inserted into her RIGHT AC fossa. Per RN notes, patient's IV infiltrated and she began to c/o pain. IV was removed. Started on heat/ice alternating. Last Vital Signs Temp Pulse Resp BP Pulse Ox 99.4 F 74 20 133/66 96 06/19/20 14:43 06/19/20 14:43 06/19/20 14:43 06/19/20 14:43 06/19/20 14:43 CBC, BMP 06/19/20 11:16 06/19/20 11:16 Serology Tests 06/14/20 06/16/20 12:30 12:20 COVID-19 ([facility]) Not detected Not detected GEN:alert. nad RUE: AC fossa tender to palpation. Palpable cord just proximal to AC. Previous periph iv site red, no purulent drainage. No erythema. No lymphatic streaking. Warm. Problem List - Problems (1) Phlebitis Assessment/Plan: RUE elevation Ibuprofen 800mg PO q 8H Warm compress 20 mins on / 20 mins off RTC IV ABX Will re-eval in AM, if no improvement may get U/S to r/o evolving collection Above plan discussed with Dr. Santiago and agrees. Code(s): I80.9 - PHLEBITIS AND THROMBOPHLEBITIS OF UNSPECIFIED SITE (2) Dehydration Code(s): E86.0 - DEHYDRATION (3) Nausea vomiting and diarrhea Code(s): R11.2 - NAUSEA WITH VOMITING, UNSPECIFIED; R19.7 - DIARRHEA, UNSPECIFIED Visit type - Case Type Case Type: ED Admission - Emergency Emergency Visit: Yes ED Registration Date: 06/14/20 Care time: The patient presented to the Emergency Department on the above date and was hospitalized for further evaluation of their emergent condition. - New patient This patient is new to me today: Yes Date on this admission: 06/19/20
[2020-06-19] MEDS: IBUPROFEN 400 MG TABLET (FP) PO PRN ×2 (15:43→23:36)
--- NOTE | 2020-06-19 15:51 | PN ---
Progress Note, Physician History of Present Illness: WAS NOTED THIS MORNING TO HAVE ERYTHEMA AT IV SITE; PT REPORTS PURULENT DRAINAGE TEMP 100.6 PT C/O PAIN AT SITE - Current Medication List Current Medications: Active Medications Albuterol/Ipratropium (Duoneb -) 1 amp NEB Q6H PRN PRN Reason: SHORTNESS OF BREATH Bacitracin (Bacitracin -) 1 applic TP BID [facility] Last Admin: 06/19/20 09:23 Dose: 1 applic Documented by: Heparin Sodium (Porcine) (Heparin -) 5,000 unit SQ BID [facility] Last Admin: 06/19/20 09:23 Dose: Not Given Documented by: Vancomycin HCl 1,000 mg/ (Dextrose) 250 mls @ 166.667 mls/hr IVPB Q12H [facility]; Protocol Ibuprofen (Motrin -) 800 mg PO Q8H PRN PRN Reason: FEVER Last Admin: 06/19/20 15:43 Dose: 800 mg Documented by: Metoclopramide HCl (Reglan Injection -) 10 mg IVPB Q8H-IV [facility] Last Admin: 06/19/20 09:29 Dose: Not Given Documented by: Ondansetron HCl (Zofran Injection) 4 mg IVPUSH Q6H PRN PRN Reason: NAUSEA AND/OR VOMITING Last Admin: 06/16/20 09:04 Dose: 4 mg Documented by: Pantoprazole Sodium (Protonix -) 40 mg PO DAILY [facility] Last Admin: 06/19/20 09:23 Dose: 40 mg Documented by: - Objective Vital Signs: Vital Signs Temperature 99.4 F 06/19/20 14:43 Pulse Rate 74 06/19/20 14:43 Respiratory Rate 20 06/19/20 14:43 Blood Pressure 133/66 06/19/20 14:43 O2 Sat by Pulse Oximetry (%) 96 06/19/20 14:43 Cardiovascular: Yes: Regular Rate and Rhythm, S1, S2 Respiratory: Yes: CTA Bilaterally Gastrointestinal: Yes: Normal Bowel Sounds, Soft. No: Tenderness Extremities: Yes: Other (+ ERYTHEMA/TENDERNESS/INDURATION R ANTECUBITAL FOSSA) Labs: CBC, BMP 06/19/20 11:16 06/19/20 11:16 Assessment/Plan CATHETER-RELATED PHLEBITIS/ CELLULITIS CEPHALOSPORIN ALLERGY BC OBTAINED CONTINUE VANCOMYCIN OBTAIN US R UE WARM COMPRESSES
[2020-06-19] MEDS: VANCOMYCIN 1 GRAM (PRE-DOCKED) 1,000 MG/250 ML BAG IVPB SCH (21:51)
[2020-06-20] MEDS: METOCLOPRAMIDE HCL INJECTION 10 MG/2 ML VIAL IVPB SCH ×3 (01:52→17:33)
--- NOTE | 2020-06-20 08:55 | PN ---
Progress Note (short form) - Note Progress Note: VASCULAR 54yo F h/o RUE phlebitis. Pt has been using Ibuprofen, warm packs, and limb elevation since yesterday. Pt states that her arm feels much better and feels like the redness has improved. Pt denies fever, chills, n/v. Last Vital Signs Temp Pulse Resp BP Pulse Ox 97.7 F 67 16 110/59 L 100 06/20/20 05:00 06/20/20 05:00 06/20/20 05:00 06/20/20 05:00 06/20/20 05:00 CBC, BMP 06/19/20 11:16 06/19/20 11:16 PE: Gen: A&O x3 Resp: breathing comfortably RUE: hard immobile mildly tender swelling over RT arm AC, mild erythema and pinpoint opening, some serous drainage, no melany pus. Problem List - Problems (1) Phlebitis Assessment/Plan: Plan -appears to be improving, continue hot packs, arm elevation and ibuprofen -if worsening of area, please reconsult vascular to reevaluate Code(s): I80.9 - PHLEBITIS AND THROMBOPHLEBITIS OF UNSPECIFIED SITE
[2020-06-20] MEDS: BACITRACIN 15 GM TUBE TOPICAL OINTMENT TP SCH ×2 (10:20→21:19)
[2020-06-20] MEDS: PANTOPRAZOLE 40 MG TABLET PO SCH (10:21)
[2020-06-20] MEDS: HEPARIN NA (PORCINE) 5,000 UNITS/ML 1ML VIAL SQ SCH ×2 (10:21→21:19)
[2020-06-20] MEDS: VANCOMYCIN 1 GRAM (PRE-DOCKED) 1,000 MG/250 ML BAG IVPB SCH ×2 (10:22→22:00)
[2020-06-20] MEDS: IBUPROFEN 400 MG TABLET (FP) PO PRN ×2 (12:13→21:18)
--- NOTE | 2020-06-20 12:51 | PN ---
Progress Note, Physician - Current Medication List Current Medications: Active Medications Albuterol/Ipratropium (Duoneb -) 1 amp NEB Q6H PRN PRN Reason: SHORTNESS OF BREATH Bacitracin (Bacitracin -) 1 applic TP BID [facility] Last Admin: 06/20/20 10:20 Dose: 1 applic Documented by: Heparin Sodium (Porcine) (Heparin -) 5,000 unit SQ BID [facility] Last Admin: 06/20/20 10:21 Dose: Not Given Documented by: Vancomycin HCl (Vancomycin (Pre-Docked)) 1,000 mg in 250 mls @ 166.667 mls/hr IVPB Q12H [facility]; Protocol Last Admin: 06/20/20 10:22 Dose: 166.667 mls/hr Documented by: Ibuprofen (Motrin -) 800 mg PO Q8H PRN PRN Reason: FEVER Last Admin: 06/20/20 12:13 Dose: 800 mg Documented by: Metoclopramide HCl (Reglan Injection -) 10 mg IVPB Q8H-IV [facility] Last Admin: 06/20/20 10:22 Dose: Not Given Documented by: Ondansetron HCl (Zofran Injection) 4 mg IVPUSH Q6H PRN PRN Reason: NAUSEA AND/OR VOMITING Last Admin: 06/16/20 09:04 Dose: 4 mg Documented by: Pantoprazole Sodium (Protonix -) 40 mg PO DAILY [facility] Last Admin: 06/20/20 10:21 Dose: Not Given Documented by: - Objective Vital Signs: Vital Signs Temperature 98.0 F 06/20/20 10:15 Pulse Rate 75 06/20/20 10:15 Respiratory Rate 16 06/20/20 10:15 Blood Pressure 99/59 L 06/20/20 10:15 O2 Sat by Pulse Oximetry (%) 98 06/20/20 10:15 Cardiovascular: Yes: Regular Rate and Rhythm Respiratory: Yes: Regular, CTA Bilaterally Gastrointestinal: Yes: Normal Bowel Sounds, Soft Labs: CBC, BMP 06/19/20 11:16 06/19/20 11:16 Problem List - Problems (1) Nausea vomiting and diarrhea Assessment/Plan: -Tolerating regular diet for dinner -GI consult noted -dc ivf -D/C Zinc- Can exacerbate symptoms -ID Consult on board -CTAP normal -Stool studies pending -Repeat COVID negative Code(s): R11.2 - NAUSEA WITH VOMITING, UNSPECIFIED; R19.7 - DIARRHEA, UNSPECIFIED (2) Dehydration Code(s): E86.0 - DEHYDRATION (3) D-dimer, elevated Assessment/Plan: pulm on case--will discuss duplex negative Code(s): R79.89 - OTHER SPECIFIED ABNORMAL FINDINGS OF BLOOD CHEMISTRY (4) Phlebitis Assessment/Plan: improved iv abx per id Code(s): I80.9 - PHLEBITIS AND THROMBOPHLEBITIS OF UNSPECIFIED SITE
--- NOTE | 2020-06-20 13:40 | PN ---
Progress Note, Physician History of Present Illness: C/O PAIN AT R ANTECUBITAL FOSSA TEMPS DOWN AFEBRILE BC PRELIM NO GROWTH DOPPLER (-) DVT (+) SUPERFICIAL VENOUS THROMBOSIS - Current Medication List Current Medications: Active Medications Albuterol/Ipratropium (Duoneb -) 1 amp NEB Q6H PRN PRN Reason: SHORTNESS OF BREATH Bacitracin (Bacitracin -) 1 applic TP BID [facility] Last Admin: 06/20/20 10:20 Dose: 1 applic Documented by: Heparin Sodium (Porcine) (Heparin -) 5,000 unit SQ BID [facility] Last Admin: 06/20/20 10:21 Dose: Not Given Documented by: Vancomycin HCl (Vancomycin (Pre-Docked)) 1,000 mg in 250 mls @ 166.667 mls/hr IVPB Q12H [facility]; Protocol Last Admin: 06/20/20 10:22 Dose: 166.667 mls/hr Documented by: Ibuprofen (Motrin -) 800 mg PO Q8H PRN PRN Reason: FEVER Last Admin: 06/20/20 12:13 Dose: 800 mg Documented by: Metoclopramide HCl (Reglan Injection -) 10 mg IVPB Q8H-IV [facility] Last Admin: 06/20/20 10:22 Dose: Not Given Documented by: Ondansetron HCl (Zofran Injection) 4 mg IVPUSH Q6H PRN PRN Reason: NAUSEA AND/OR VOMITING Last Admin: 06/16/20 09:04 Dose: 4 mg Documented by: Pantoprazole Sodium (Protonix -) 40 mg PO DAILY [facility] Last Admin: 06/20/20 10:21 Dose: Not Given Documented by: - Objective Vital Signs: Vital Signs Temperature 98.0 F 06/20/20 10:15 Pulse Rate 75 06/20/20 10:15 Respiratory Rate 16 06/20/20 10:15 Blood Pressure 99/59 L 06/20/20 10:15 O2 Sat by Pulse Oximetry (%) 98 06/20/20 10:15 Constitutional: Yes: No Distress Eyes: Yes: Conjunctiva Clear Cardiovascular: Yes: Regular Rate and Rhythm, S1, S2 Respiratory: Yes: CTA Bilaterally Extremities: Yes: Other (+ ERYTHEMA/ INDURATION/ TENDERNESS R ANTECUBITAL FOSSA) Labs: CBC, BMP 06/19/20 11:16 06/19/20 11:16 Assessment/Plan CATHETER-RELATED PHLEBITIS/ CELLULITIS SUPERFICIAL VENOUS THROMBOSIS CEPHALOSPORIN ALLERGY BC PENDING CONTINUE VANCOMYCIN WARM COMPRESSES
[2020-06-21] MEDS: METOCLOPRAMIDE HCL INJECTION 10 MG/2 ML VIAL IVPB SCH ×3 (02:00→17:34)
[2020-06-21] MEDS: BACITRACIN 15 GM TUBE TOPICAL OINTMENT TP SCH ×2 (09:13→22:28)
[2020-06-21] MEDS: HEPARIN NA (PORCINE) 5,000 UNITS/ML 1ML VIAL SQ SCH ×2 (09:13→22:28)
[2020-06-21] MEDS: PANTOPRAZOLE 40 MG TABLET PO SCH (09:13)
[2020-06-21] MEDS: IBUPROFEN 400 MG TABLET (FP) PO PRN ×2 (09:14→20:01)
--- NOTE | 2020-06-21 11:17 | PN ---
Progress Note, Physician - Current Medication List Current Medications: Active Medications Bacitracin (Bacitracin -) 1 applic TP BID [facility] Last Admin: 06/21/20 09:13 Dose: 1 applic Documented by: Heparin Sodium (Porcine) (Heparin -) 5,000 unit SQ BID [facility] Last Admin: 06/21/20 09:13 Dose: Not Given Documented by: Vancomycin HCl (Vancomycin (Pre-Docked)) 1,000 mg in 250 mls @ 166.667 mls/hr IVPB Q12H [facility]; Protocol Last Admin: 06/20/20 22:00 Dose: 166.667 mls/hr Documented by: Ibuprofen (Motrin -) 800 mg PO Q8H PRN PRN Reason: FEVER Last Admin: 06/21/20 09:14 Dose: 800 mg Documented by: Metoclopramide HCl (Reglan Injection -) 10 mg IVPB Q8H-IV [facility] Last Admin: 06/21/20 09:14 Dose: Not Given Documented by: Ondansetron HCl (Zofran Injection) 4 mg IVPUSH Q6H PRN PRN Reason: NAUSEA AND/OR VOMITING Last Admin: 06/16/20 09:04 Dose: 4 mg Documented by: Pantoprazole Sodium (Protonix -) 40 mg PO DAILY [facility] Last Admin: 06/21/20 09:13 Dose: 40 mg Documented by: - Objective Vital Signs: Vital Signs Temperature 98.2 F 06/21/20 09:00 Pulse Rate 87 06/21/20 09:00 Respiratory Rate 20 06/21/20 09:00 Blood Pressure 121/69 06/21/20 09:00 O2 Sat by Pulse Oximetry (%) 96 06/21/20 09:00 Cardiovascular: Yes: Regular Rate and Rhythm Respiratory: Yes: Regular, CTA Bilaterally Gastrointestinal: Yes: Normal Bowel Sounds, Soft Wound/Incision: Yes: Draining, Reddened Labs: CBC, BMP 06/19/20 11:16 06/19/20 11:16 Problem List - Problems (1) Nausea vomiting and diarrhea Assessment/Plan: -Tolerating regular diet for dinner -GI consult noted -dc ivf -D/C Zinc- Can exacerbate symptoms -ID Consult on board -CTAP normal -Stool studies pending -Repeat COVID negative Code(s): R11.2 - NAUSEA WITH VOMITING, UNSPECIFIED; R19.7 - DIARRHEA, UNSPECIFIED (2) Dehydration Code(s): E86.0 - DEHYDRATION (3) D-dimer, elevated Assessment/Plan: pulm on case--will discuss duplex negative Code(s): R79.89 - OTHER SPECIFIED ABNORMAL FINDINGS OF BLOOD CHEMISTRY (4) Phlebitis Assessment/Plan: improved iv abx per id Code(s): I80.9 - PHLEBITIS AND THROMBOPHLEBITIS OF UNSPECIFIED SITE
[2020-06-21] MEDS: VANCOMYCIN 1 GRAM (PRE-DOCKED) 1,000 MG/250 ML BAG IVPB SCH ×2 (11:24→22:29)
--- NOTE | 2020-06-21 15:43 | PN ---
Progress Note (short form) - Note Progress Note: reports arm is improving afebrile Vital Signs Period Temp Pulse Resp BP Sys/Jack Pulse Ox Last 24 Hr 97.8 F-98.9 F 67-87 16-20 98-130/54-74 96-99 cor-rrr llungs clear abd soft,nt ext induration of right antecub fossa +erythema no fluctuance, no drainage no axiallry KALYAN CBC, BMP 06/19/20 11:16 06/19/20 11:16 Microbiology 06/19/20 11:16 Blood - Peripheral Venous Blood Culture - Preliminary NO GROWTH OBTAINED AFTER 48 HOURS, INCUBATION TO CONTINUE FOR 3 DAYS. 06/19/20 11:20 Blood - Peripheral Venous Blood Culture - Preliminary NO GROWTH OBTAINED AFTER 48 HOURS, INCUBATION TO CONTINUE FOR 3 DAYS. 06/15/20 07:47 Blood - Peripheral Venous Blood Culture - Final NO GROWTH AFTER 5 DAYS INCUBATION 06/15/20 07:47 Blood - Peripheral Venous Blood Culture - Final NO GROWTH AFTER 5 DAYS INCUBATION 06/16/20 15:00 Stool Salmonella/Shigella Culture - Final NO GROWTH OF SALMONELLA OR SHIGELLA SPECIES OBTAINED 06/16/20 15:00 Stool Campylobacter Culture - Final NO GROWTH OF CAMPYLOBACTER SPECIES OBTAINED 06/16/20 15:00 Stool Yersinia Culture - Final NO GROWTH OF YERSINIA SPECIES OBTAINED 06/16/20 15:00 Stool Vibrio Culture - Final NO GROWTH OF VIBRIO SPECIES OBTAINED 06/16/20 15:00 Stool Escherichia coli 0157 Culture - Final NO GROWTH OF E COLI 0157 OBTAINED 06/14/20 18:20 Stool Salmonella/Shigella Culture - Final NO GROWTH OF SALMONELLA OR SHIGELLA SPECIES OBTAINED 06/14/20 18:20 Stool Campylobacter Culture - Final NO GROWTH OF CAMPYLOBACTER SPECIES OBTAINED 06/14/20 18:20 Stool Yersinia Culture - Final NO GROWTH OF YERSINIA SPECIES OBTAINED 06/14/20 18:20 Stool Vibrio Culture - Final NO GROWTH OF VIBRIO SPECIES OBTAINED 06/14/20 18:20 Stool Escherichia coli 0157 Culture - Final NO GROWTH OF E COLI 0157 OBTAINED 06/16/20 14:00 Urine - Urine Clean Catch Urine Culture - Final NO GROWTH OBTAINED 06/16/20 14:41 Stool Norovirus GI - Preliminary 06/16/20 14:41 Stool Norovirus GII - Preliminary 06/16/20 15:00 Stool Cryptosporidium Antigen - Final NO CRYPTOSPORIDIUM OOCYSTS DETECTED, BY EIA 06/16/20 15:00 Stool Giardia Antigen (IMAN) - Final NEGATIVE FOR GIARDIA BY ENZYME IMMUNOASSAY 06/14/20 18:20 Stool Clostridioides difficile Antigen - Final 06/14/20 18:20 Stool Clostridioides difficile Toxin Assay - Final 06/14/20 22:00 Urine - Urine Clean Catch Urine Culture - Final NO GROWTH OBTAINED a/p cellulitis superficial phlebitis of the cephalic vein continue vancomycin improving cefazolin allergy - rash
[2020-06-22] MEDS: METOCLOPRAMIDE HCL INJECTION 10 MG/2 ML VIAL IVPB SCH ×3 (01:31→19:11)
[2020-06-22] MEDS: IBUPROFEN 400 MG TABLET (FP) PO PRN ×2 (08:08→16:22)
[2020-06-22] MEDS: PANTOPRAZOLE 40 MG TABLET PO SCH ×2 (08:08→09:00)
[2020-06-22] MEDS: BACITRACIN 15 GM TUBE TOPICAL OINTMENT TP SCH ×2 (09:00→22:05)
[2020-06-22] MEDS: HEPARIN NA (PORCINE) 5,000 UNITS/ML 1ML VIAL SQ SCH ×2 (09:00→22:05)
[2020-06-22] MEDS: VANCOMYCIN 1 GRAM (PRE-DOCKED) 1,000 MG/250 ML BAG IVPB SCH ×2 (10:19→22:05)
--- NOTE | 2020-06-22 11:23 | PN ---
Progress Note, Physician - Current Medication List Current Medications: Active Medications Bacitracin (Bacitracin -) 1 applic TP BID [facility] Last Admin: 06/22/20 09:00 Dose: 1 applic Documented by: Heparin Sodium (Porcine) (Heparin -) 5,000 unit SQ BID [facility] Last Admin: 06/22/20 09:00 Dose: Not Given Documented by: Vancomycin HCl (Vancomycin (Pre-Docked)) 1,000 mg in 250 mls @ 166.667 mls/hr IVPB Q12H [facility]; Protocol Last Admin: 06/22/20 10:19 Dose: 166.667 mls/hr Documented by: Ibuprofen (Motrin -) 800 mg PO Q8H PRN PRN Reason: FEVER Last Admin: 06/22/20 08:08 Dose: 800 mg Documented by: Metoclopramide HCl (Reglan Injection -) 10 mg IVPB Q8H-IV [facility] Last Admin: 06/22/20 09:00 Dose: Not Given Documented by: Ondansetron HCl (Zofran Injection) 4 mg IVPUSH Q6H PRN PRN Reason: NAUSEA AND/OR VOMITING Last Admin: 06/16/20 09:04 Dose: 4 mg Documented by: Pantoprazole Sodium (Protonix -) 40 mg PO DAILY [facility] Last Admin: 06/22/20 09:00 Dose: Not Given Documented by: - Objective Vital Signs: Vital Signs Temperature 98.2 F 06/22/20 10:00 Pulse Rate 73 06/22/20 10:00 Respiratory Rate 20 06/22/20 10:00 Blood Pressure 118/65 06/22/20 10:00 O2 Sat by Pulse Oximetry (%) 100 06/22/20 10:00 Wound/Incision: Yes: Draining, Reddened, Other (IMPROVING) Labs: CBC, BMP 06/19/20 11:16 06/19/20 11:16 Problem List - Problems (1) Nausea vomiting and diarrhea Code(s): R11.2 - NAUSEA WITH VOMITING, UNSPECIFIED; R19.7 - DIARRHEA, UNSPECIFIED (2) Dehydration Code(s): E86.0 - DEHYDRATION (3) D-dimer, elevated Code(s): R79.89 - OTHER SPECIFIED ABNORMAL FINDINGS OF BLOOD CHEMISTRY (4) Phlebitis Assessment/Plan: improved iv abx per id Code(s): I80.9 - PHLEBITIS AND THROMBOPHLEBITIS OF UNSPECIFIED SITE
--- NOTE | 2020-06-22 14:18 | PN ---
Progress Note (short form) - Note Progress Note: reports arm is improving afebrile no complaints Vital Signs Period Temp Pulse Resp BP Sys/Jack Pulse Ox Last 24 Hr 98 F-98.2 F 64-73 16-20 118-122/61-68 96-100 less erythema, still induration of the right antecubital area no drainage CBC, BMP 06/19/20 11:16 06/19/20 11:16 Microbiology 06/19/20 11:16 Blood - Peripheral Venous Blood Culture - Preliminary NO GROWTH OBTAINED AFTER 72 HOURS, INCUBATION TO CONTINUE FOR 2 DAYS. 06/19/20 11:20 Blood - Peripheral Venous Blood Culture - Preliminary NO GROWTH OBTAINED AFTER 72 HOURS, INCUBATION TO CONTINUE FOR 2 DAYS. 06/15/20 07:47 Blood - Peripheral Venous Blood Culture - Final NO GROWTH AFTER 5 DAYS INCUBATION 06/15/20 07:47 Blood - Peripheral Venous Blood Culture - Final NO GROWTH AFTER 5 DAYS INCUBATION 06/16/20 15:00 Stool Salmonella/Shigella Culture - Final NO GROWTH OF SALMONELLA OR SHIGELLA SPECIES OBTAINED 06/16/20 15:00 Stool Campylobacter Culture - Final NO GROWTH OF CAMPYLOBACTER SPECIES OBTAINED 06/16/20 15:00 Stool Yersinia Culture - Final NO GROWTH OF YERSINIA SPECIES OBTAINED 06/16/20 15:00 Stool Vibrio Culture - Final NO GROWTH OF VIBRIO SPECIES OBTAINED 06/16/20 15:00 Stool Escherichia coli 0157 Culture - Final NO GROWTH OF E COLI 0157 OBTAINED 06/14/20 18:20 Stool Salmonella/Shigella Culture - Final NO GROWTH OF SALMONELLA OR SHIGELLA SPECIES OBTAINED 06/14/20 18:20 Stool Campylobacter Culture - Final NO GROWTH OF CAMPYLOBACTER SPECIES OBTAINED 06/14/20 18:20 Stool Yersinia Culture - Final NO GROWTH OF YERSINIA SPECIES OBTAINED 06/14/20 18:20 Stool Vibrio Culture - Final NO GROWTH OF VIBRIO SPECIES OBTAINED 06/14/20 18:20 Stool Escherichia coli 0157 Culture - Final NO GROWTH OF E COLI 0157 OBTAINED 06/16/20 14:00 Urine - Urine Clean Catch Urine Culture - Final NO GROWTH OBTAINED 06/16/20 14:41 Stool Norovirus GI - Preliminary 06/16/20 14:41 Stool Norovirus GII - Preliminary 06/16/20 15:00 Stool Cryptosporidium Antigen - Final NO CRYPTOSPORIDIUM OOCYSTS DETECTED, BY EIA 06/16/20 15:00 Stool Giardia Antigen (IMAN) - Final NEGATIVE FOR GIARDIA BY ENZYME IMMUNOASSAY 06/14/20 18:20 Stool Clostridioides difficile Antigen - Final 06/14/20 18:20 Stool Clostridioides difficile Toxin Assay - Final 06/14/20 22:00 Urine - Urine Clean Catch Urine Culture - Final NO GROWTH OBTAINED a/p cellulitis superficial phlebitis of the cephalic vein continue vancomycin improving cefazolin allergy - rash
[2020-06-22 23:48] VITALS: PULSE 70
[2020-06-23] MEDS: IBUPROFEN 400 MG TABLET (FP) PO PRN ×2 (00:06→09:19)
[2020-06-23] MEDS: METOCLOPRAMIDE HCL INJECTION 10 MG/2 ML VIAL IVPB SCH ×2 (01:43→09:51)
[2020-06-23] MEDS: PANTOPRAZOLE 40 MG TABLET PO SCH (09:20)
[2020-06-23] MEDS: HEPARIN NA (PORCINE) 5,000 UNITS/ML 1ML VIAL SQ SCH (09:51)
[2020-06-23] MEDS: BACITRACIN 15 GM TUBE TOPICAL OINTMENT TP SCH (09:51)
--- NOTE | 2020-06-23 11:23 | PN ---
Progress Note, Physician History of Present Illness: NO C/O PAIN AT R ANTECUBITAL FOSSA TEMPS DOWN AFEBRILE BC NO GROWTH DOPPLER (-) DVT (+) SUPERFICIAL VENOUS THROMBOSIS - Current Medication List Current Medications: Active Medications Bacitracin (Bacitracin -) 1 applic TP BID [facility] Last Admin: 06/23/20 09:51 Dose: 1 applic Documented by: Heparin Sodium (Porcine) (Heparin -) 5,000 unit SQ BID [facility] Last Admin: 06/23/20 09:51 Dose: Not Given Documented by: Vancomycin HCl (Vancomycin (Pre-Docked)) 1,000 mg in 250 mls @ 166.667 mls/hr IVPB Q12H [facility]; Protocol Last Admin: 06/22/20 22:05 Dose: 166.667 mls/hr Documented by: Ibuprofen (Motrin -) 800 mg PO Q8H PRN PRN Reason: FEVER Last Admin: 06/23/20 09:19 Dose: 800 mg Documented by: Metoclopramide HCl (Reglan Injection -) 10 mg IVPB Q8H-IV [facility] Last Admin: 06/23/20 09:51 Dose: Not Given Documented by: Ondansetron HCl (Zofran Injection) 4 mg IVPUSH Q6H PRN PRN Reason: NAUSEA AND/OR VOMITING Last Admin: 06/16/20 09:04 Dose: 4 mg Documented by: Pantoprazole Sodium (Protonix -) 40 mg PO DAILY [facility] Last Admin: 06/23/20 09:20 Dose: 40 mg Documented by: - Objective Vital Signs: Vital Signs Temperature 98.5 F 06/22/20 22:00 Pulse Rate 70 06/22/20 22:00 Respiratory Rate 19 06/22/20 22:00 Blood Pressure 118/70 06/22/20 22:00 O2 Sat by Pulse Oximetry (%) 100 06/23/20 05:59 Constitutional: Yes: No Distress Eyes: Yes: Conjunctiva Clear Cardiovascular: Yes: Regular Rate and Rhythm, S1, S2 Respiratory: Yes: CTA Bilaterally Gastrointestinal: Yes: Normal Bowel Sounds, Soft. No: Tenderness Extremities: Yes: Other (R ANTECUBITAL FOSSA ERYTHEMA RESOLVED) Labs: CBC, BMP 06/19/20 11:16 06/19/20 11:16 Assessment/Plan CATHETER-RELATED PHLEBITIS/ CELLULITIS IMPROVED CEPHALOSPORIN ALLERGY BC NEGATIVE DISCONTINUE VANCOMYCIN CONTINUE WARM COMPRESSES
[2020-06-23 14:47] VITALS: BP 130/67; TEMP 99
--- NOTE | 2020-06-23 17:04 | DS ---
Physical Examination Vital Signs: Vital Signs Temperature 99 F 06/23/20 14:45 Pulse Rate 70 06/23/20 14:45 Respiratory Rate 16 06/23/20 14:45 Blood Pressure 130/67 06/23/20 14:45 O2 Sat by Pulse Oximetry (%) 98 06/23/20 14:45 Labs: CBC, BMP 06/19/20 11:16 06/19/20 11:16 Discharge Summary Problems reviewed: Yes Reason For Visit: DIARRHEA WEAKNESS INFLUENZA LIKE SYMPTOMS Current Active Problems D-dimer, elevated (Acute) Dehydration (Acute) Diarrhea (Acute) Fever (Acute) Infectious diarrhea (Acute) Nausea vomiting and diarrhea (Acute) Phlebitis (Acute) Suspected 2019 novel coronavirus infection (Acute) Weakness (Acute) Hospital Course: - Problems (1) Nausea vomiting and diarrhea Assessment/Plan: -Tolerating regular diet for dinner -GI consult noted -dc ivf -D/C Zinc- Can exacerbate symptoms -ID Consult on board -CTAP normal -Stool studies pending -Repeat COVID negative Code(s): R11.2 - NAUSEA WITH VOMITING, UNSPECIFIED; R19.7 - DIARRHEA, UNSPECIFIED (2) Phlebitis of the -iv out -local care -abx (3) D-dimer, elevated Assessment/Plan: pulm on case--will discuss Code(s): R79.89 - OTHER SPECIFIED ABNORMAL FINDINGS OF BLOOD CHEMISTRY Condition: Stable - Instructions Diet, Activity, Other Instructions: warm soaks to forearm if any worsening or fever to the Emergency Room Referrals: Bertha Kincaid MD [Primary Care Provider] - 06/23/20 - Home Medications Comprehensive Discharge Medication List: Ambulatory Orders Bacitracin - [Bacitracin Topical Ointment -] 1 applic TP BID #1 tube 06/19/20
== END 2020-06-23 20:02 | disposition home or self-care (01) | DRG 249 ==
LOC: SUPCPDRO 17:00 → JER 17:00 → J6S 20:11
PROVIDERS: ADMIT Internal Medicine; ATTEND Family Medicine
DX: A09 Infectious gastroenteritis and colitis, unspecified (principal); E86.0 Dehydration; K29.00 Acute gastritis without bleeding; R53.1 Weakness; R50.9 Fever, unspecified; J34.89 Other specified disorders of nose and nasal sinuses; M79.10 Myalgia, unspecified site; D69.6 Thrombocytopenia, unspecified; D72.829 Elevated white blood cell count, unspecified; J40 Bronchitis, not specified as acute or chronic; M71.22 Synovial cyst of popliteal space [Baker], left knee; R11.2 Nausea with vomiting, unspecified; R79.89 Other specified abnormal findings of blood chemistry; R63.0 Anorexia; Z68.26 Body mass index [BMI] 26.0-26.9, adult; T85.9XXA Unspecified complication of internal prosthetic device, implant and graft, initial encounter; I80.8 Phlebitis and thrombophlebitis of other sites; L03.119 Cellulitis of unspecified part of limb; Y84.8 Other medical procedures as the cause of abnormal reaction of the patient, or of later complication, without mention of misadventure at the time of the procedure
CPT/HCPCS: 36415; 71045-TC-FY; 71250-TC; 74176-TC; 80053; 82728; 83615; 83718; 83735; 83935; 85025; 85379; 86140; 86769; 87040; 87045; 87046; 87086; 87177; 87209; 87324; 87328; 87329; 87389; 87449; 87798; 93005; 93010; 93970-TC; 93971; 99285-25; G0480; J0131; Q9967; U0003

== ENCOUNTER 2021-07-25 13:45 | Emergency (ER) | payer OTHER ==
[2021-07-25 13:53] VITALS: BMI 22.0
[2021-07-25] MEDS ORDERED: ONDANSETRON 4 MG/2 ML VIAL IVPUSH ONE (14:55)
[2021-07-25] MEDS ORDERED: SODIUM CHLORIDE 0.9% 500 ML INFUS.BAG IV ONE ×2 (14:55→18:39)
[2021-07-25] MEDS ORDERED: ACETAMINOPHEN 1000 MG/100 ML VIAL (NON FORMULARY) IVPB ONE (14:55)
[2021-07-25] MEDS ORDERED: FAMOTIDINE 20 MG/50 ML IVPB 20 MG/50 ML MG IVPB ONE ×2 (14:55→15:55)
[2021-07-25] MEDS ORDERED: ONDANSETRON 4 MG/2 ML VIAL ONE (15:55)
[2021-07-25] MEDS ORDERED: ACETAMINOPHEN INJECTION 100 ML IVPB ONE (15:55)
[2021-07-25 16:37] LABS: BASO % 0.2 % (0-2.0); HEMATOCRIT 37.6 % (32.4-45.2); HEMOGLOBIN 12.9 GM/dL (10.7-15.3); LYMPH % 39.5 % (8-40); MCH 26.4 pg (25.7-33.7); MCHC 34.2 g/dl (32.0-36.0); MEAN CELL VOLUME 77.1 fl (80-96); MEAN PLT VOLUME 8.8 fl (7.5-11.1); MONO % 10.3 % (3.8-10.2); PLATELET COUNT 201 10^3/uL (134-434); RBC 4.87 M/mm3 (3.60-5.2); RDW 14.4 % (11.6-15.6); WHITE BLOOD COUNT 5.4 K/mm3 (4.0-10.0)
[2021-07-25 16:49] LABS: INR 1.1 (0.83-1.09); PROTHROMBIN TIME (PATIENT) 13.3 SEC (9.7-13.0)
[2021-07-25 16:51] LABS: ACTIVATED PTT 35.9 SECONDS (25.2-36.5)
[2021-07-25 17:04] LABS: CHLORIDE 106 mmol/L (98-107); SODIUM 138 mmol/L (136-145)
[2021-07-25 17:06] LABS: CALCIUM 8.7 mg/dL (8.5-10.1)
[2021-07-25 17:07] LABS: ALBUMIN 3.9 g/dl (3.4-5.0); ANION GAP 8 MMOL/L (8-16); BLOOD UREA NITROGEN 19.1 mg/dL (7-18); CO2 24 mmol/L (21-32); GLUCOSE,RANDOM 81 mg/dL (74-106); LIPASE 40 U/L (73-393)
[2021-07-25 17:09] LABS: SGOT/AST 12 U/L (15-37); SGPT/ALT 19 U/L (13-61)
[2021-07-25 17:10] LABS: CREATININE 0.7 mg/dL (0.55-1.3)
[2021-07-25 17:11] LABS: BILIRUBIN,TOTAL 0.6 mg/dL (0.2-1); TOT PROT 7.9 g/dl (6.4-8.2)
[2021-07-25 17:12] LABS: ALK PHOS 92 U/L (45-117)
[2021-07-25 18:52] LABS: EPI CELLS 6 /uL (0-25.1); HYALINE CASTS 6 /uL (0-3.1); PH,URINE 5.5 (5.0-8.0); URINE APPEARANCE CLEAR; URINE BACTERIA 15 /uL (0-1359); URINE BILIRUBIN 1+ (NEGATIVE); URINE COLOR DK YELLOW; URINE GLUCOSE (UA) NEGATIVE (NEGATIVE); URINE KETONE 3+ (NEGATIVE); URINE LEUK ESTERASE NEGATIVE (NEGATIVE); URINE NITRITE NEGATIVE (NEGATIVE); URINE PROTEIN 1+ (NEGATIVE); URINE RBC 6 /uL (0-23.9); URINE WBC 14 /uL (0-25.8)
[2021-07-25 22:10] VITALS: BP 110/68; PULSE 88; TEMP 98.6
== END 2021-07-25 22:11 | disposition home or self-care (01) ==
LOC: JER 13:45
PROC: 3E0333Z Introduction of Anti-inflammatory into Peripheral Vein, Percutaneous Approach (ICD-10-PCS; principal; 2021-07-25)
PROC: 3E033GC Introduction of Other Therapeutic Substance into Peripheral Vein, Percutaneous Approach (ICD-10-PCS; 2021-07-25)
PROC: 3E033GC Introduction of Other Therapeutic Substance into Peripheral Vein, Percutaneous Approach (ICD-10-PCS; 2021-07-25)
DX: R10.33 Periumbilical pain (principal)
CPT/HCPCS: 36415; 71045-TC-FY; 74177-TC; 80053; 81003; 82550; 83605; 83690; 84484; 85025; 85610; 85730; 86850; 86900; 86901; 87086; 93005; 93010; 99285-25; J0131; Q9967

== ENCOUNTER 2021-11-12 10:41 | Emergency (ER) | payer OTHER ==
[2021-11-12 10:50] VITALS: BP 125/78; PULSE 88; TEMP 97.7; BMI 21.2
[2021-11-12] MEDS ORDERED: ACETAMINOPHEN 500 MG TABLET (FP) PO ONE (11:56)
[2021-11-12] MEDS ORDERED: ACETAMINOPHEN 325 MG TABLET (FP) ONE (12:01)
== END 2021-11-12 15:37 | disposition home or self-care (01) ==
LOC: JCOVINFU 10:41 → JER 10:41
DX: U07.1 COVID-19 (principal)
CPT/HCPCS: 99283-25

== ENCOUNTER 2023-12-24 19:18 | Emergency (ER) | payer BC, OTHER ==
[2023-12-24 19:42] VITALS: TEMP 97.8; BMI 23.6
[2023-12-24 20:44] LABS: BASO % 0.6 % (0-2.0); HEMATOCRIT 37.8 % (32.4-45.2); HEMOGLOBIN 12.5 GM/dL (10.7-15.3); MCHC 33.2 g/dl (32.0-36.0); MEAN CELL VOLUME 78.5 fl (80-96); MEAN PLT VOLUME 8.3 fl (7.5-11.1); MONO % 6.3 % (3.8-10.2); NEUT % 67.1 % (42.8-82.8); PLATELET COUNT 227 10^3/uL (134-434); RBC 4.82 M/mm3 (3.60-5.2); RDW 14.7 % (11.6-15.6); WHITE BLOOD COUNT 7.3 K/mm3 (4.0-10.0)
[2023-12-24] MEDS ORDERED: ACETAMINOPHEN 325 MG TABLET (FP) ONE (20:44)
[2023-12-24] MEDS: ACETAMINOPHEN 500 MG TABLET (FP) PO ONE (20:48)
[2023-12-24 21:02] LABS: POTASSIUM 5.1 mmol/L (3.5-5.1)
[2023-12-24 21:04] LABS: CALCIUM 8.7 mg/dL (8.5-10.1); INR 1.01 (0.83-1.09); PROTHROMBIN TIME (PATIENT) 11.7 SEC (9.7-13.0)
[2023-12-24 21:05] LABS: ALBUMIN 3.6 g/dl (3.4-5.0); BLOOD UREA NITROGEN 15.2 mg/dL (7-18)
[2023-12-24 21:07] LABS: ACTIVATED PTT 33.5 SECONDS (25.2-36.5)
[2023-12-24 21:08] LABS: CREATININE 0.8 mg/dL (0.55-1.3)
[2023-12-24 21:09] LABS: BILIRUBIN,TOTAL 0.3 mg/dL (0.2-1)
[2023-12-24 21:10] LABS: TOT PROT 7.3 g/dl (6.4-8.2)
[2023-12-24 22:33] VITALS: BP 118/76; PULSE 69; RESP 17
== END 2023-12-24 22:33 | disposition home or self-care (01) ==
LOC: JER 19:18
DX: R07.89 Other chest pain (principal); R06.02 Shortness of breath; F41.9 Anxiety disorder, unspecified
CPT/HCPCS: 36415; 71046-TC-FY; 80053; 83735; 84484; 85025; 85610; 85730; 93005; 93010; 99285-25